=== PATIENT | female | born 1985 | race African-American/Black ===

== ENCOUNTER → 2016-06-07 | Outpatient (CLI) | payer BC ==
--- NOTE | 2016-06-08 13:32 | US ---
EXAM DATE: 06/07/16 PATIENT'S AGE: 30 Patient: ROSA GURROLA Facility: [place], [place] Site . Site : 1985 Study: US OB Pelvis [id number]/10/2017 10:34:38 AM Ordering Physician: Obed Page Final Report: INDICATION: Check placenta, position and estimated weight. TECHNIQUE: Limited transabdominal and transvaginal two-dimensional grayscale ultrasound examination. COMPARISON: 02/17/2016. FINDINGS: There is a living fetus vertex lie with gestational age of 34 weeks 6 days by LMP and 36 weeks 2 days by today`s measurements. EDC based on LMP is 07/13/2016. BPD: 9.1 cm, 36 weeks 6 days Head circumference: 32.3 cm, 36 weeks 4 days Abdominal circumference: 30.3 cm, 34 weeks 2 days Femur length: 7.3 cm, 37 weeks 2 days The weight is estimated at 2707 grams, the 67th percentile. The heart rate is measured at 142 beats per minute and the rhythm appears regular. The amniotic fluid volume is within normal limits with MELI of 12 cm. The placenta is anterior and superior to the cervical os. There is no evidence of previa. The cervical length is normal at 3.0 cm in the internal os is closed. IMPRESSION: 1. Living fetus in vertex lie with gestational age of 34 weeks 6 days by LMP and 36 weeks 2 days by today`s measurements. EDC based on LMP is 07/13/2016. 2. weight estimated at 2707 grams, the 67th percentile. Dictated by Edmund Grey MD @ Jun 07 2016 4:32PM (Electronic Signature) Report Signed by Proxy and Original Signed Document filed in the Medical Record. WISAMD
== END ==
LOC: MW.US 09:29
PROVIDERS: ATTEND Advanced Practice Midwife
DX: Z34.93 Encounter for supervision of normal pregnancy, unspecified, third trimester (principal); Z3A.34 34 weeks gestation of pregnancy
CPT/HCPCS: 76817; 76817-26

== ENCOUNTER → 2016-06-16 | Outpatient (CLI) | payer BC | END | disposition home or self-care (01) | LOC: MW.CHOBGYN 08:48 | PROVIDERS: ATTEND Advanced Practice Midwife | DX: Z34.90 Encounter for supervision of normal pregnancy, unspecified, unspecified trimester (principal) | CPT/HCPCS: 87081 ==

== ENCOUNTER 2016-07-03 20:06 | Outpatient (CLI) | payer BC | END 2016-07-03 21:30 | disposition home or self-care (01) | LOC: MW.OBCHECK 20:06 → MW.OB 20:08 → MW.OBCHECK 21:30 | PROVIDERS: ATTEND Obstetrics & Gynecology | DX: O36.8121 Decreased fetal movements, second trimester, fetus 1 (principal); Z3A.26 26 weeks gestation of pregnancy | CPT/HCPCS: 59025; 81001 ==

== ENCOUNTER 2016-07-05 10:06 | Inpatient (IN) | payer BC ==
[2016-07-05] MEDS ORDERED: Lidocaine 1% 50 ML MDV INJECT PRN (10:25)
[2016-07-05] MEDS ORDERED: Water For Irrigation,Sterile 1,000 ML Container IRR PRN (10:25)
[2016-07-05] MEDS ORDERED: Methylergonovine 0.2 MG/1 ML Amp IM PRN (10:25)
[2016-07-05] MEDS ORDERED: Nalbuphine 10 MG/1 ML Vial IVPUSH PRN (10:25)
[2016-07-05] MEDS ORDERED: Sodium Chloride 0.9% 10 ML Syringe FLUSH PRN (10:25)
[2016-07-05] MEDS ORDERED: Misoprostol 200 MCG Tab PO PRN (10:25)
[2016-07-05] MEDS ORDERED: Sodium Chloride 0.9% 2.5 ML Syringe FLUSH PRN (10:25)
[2016-07-05] MEDS ORDERED: Butorphanol 1 MG/ML SDV IVPUSH PRN (10:25)
[2016-07-05] MEDS ORDERED: Carboprost Tromethamine 250 MCG/1 ML Amp IM PRN (10:25)
[2016-07-05] MEDS ORDERED: Oxytocin/Lactated Ringers 30 UNIT/500 ML BAG IV SCH (10:30)
[2016-07-05] MEDS: Lactated Ringers 1,000 ML IV SCH ×3 (10:30→12:50)
--- NOTE | 2016-07-05 10:35 | PCM.LDHP ---
L&D History of Present Illness - General Date of Service: 07/05/16 Admit Problem/Dx: Patient Status Order with Admit Dx/Problem 07/05/16 10:25 Patient Status [ADT] Routine Admission Diagnosis/Problem Admission Diagnosis/Problem - planned 07/05/16 10:31 30 yo EDC 07/19/2016 38 wks today. A+, RI, GBS neg. Active labor 6-7cm. Intact. Hx in ; anemia. Source of Information: Patient History Limitations: Reports: No limitations - History of Present Illness Improves with: Reports: None Worsens with: Reports: None Associated Symptoms: Reports: N - Related Data Allergies/Adverse Reactions: Allergies Allergy/AdvReac Type Severity Reaction Status Date / Time No Known Allergies Allergy Verified 06/20/14 08:19 H&P Review of Systems - Review of Systems: Review Of Systems: See Below General: Reports: no symptoms HEENT: Reports: no symptoms Pulmonary: Reports: No Symptoms Cardiovascular: Reports: no symptoms Gastrointestinal: Reports: No symptoms Genitourinary: Reports: no symptoms Musculoskeletal: Reports: no symptoms Skin: Reports: no symptoms Psychiatric: Reports: no symptoms Neurological: Reports: No Symptoms Hematologic/Lymphatic: Reports: no symptoms Immunologic: Reports: no symptoms L&D Exam - Exam Exam: See Below - Vital Signs Weight: 70.307 kg - OB Specific Contraction Intensity: Strong movement: active heart tones: present heart tones per min: 120 Heart Rate (FHR) Variability: Moderate (6-25 bmp) Presentation: Vertex - Dobbs Score Dobbs Score Cervix Position: Anterior Dobbs Score Consistency: Soft Dobbs Score Effacement: >80% Dobbs Score Dilation: > 5 cm Dobbs Score Infant's Station: -1 ,0 Dobbs Score Total: 12 - Exam General: alert, oriented, cooperative HEENT: Hearing intact Lungs: Normal respiratory effort Abdomen: soft (gravid) Rectal Exam: Deferred Back Exam: full range of motion Extremities: normal inspection Skin: warm, dry, intact Neurological: cranial nerves intact Psychiatric: alert, normal affect, normal mood - Problem List (1) Supervision of normal IUP (intrauterine ) in multigravida SNOMED Code(s): 009711773, 077750665, 113805016 ICD Code: Z34.80 - ENCOUNTER FOR SUPRVSN OF NORMAL , UNSP TRIMESTER Status: Acute Current Visit: Yes Qualifiers: Trimester: third trimester Qualified Code(s): Z34.83 - Encounter for supervision of other normal , third trimester Problem List Initiated/Reviewed/Updated: Yes Orders Last 24hrs: Active Orders 24 hr Category Date Time Status Patient Status [ADT] Routine ADT 07/05/16 10:25 Active Heart Tones [RC] CONTINUOUS Care 07/05/16 10:25 Active Non Stress Test [RC] PER UNIT ROUTINE Care 07/05/16 10:25 Active May Shower [RC] ASDIRECTED Care 07/05/16 10:25 Active Notify Provider [RC] PRN Care 07/05/16 10:25 Active Up ad Yolanda [RC] ASDIRECTED Care 07/05/16 10:25 Active Vaginal Exam [RC] PRN Care 07/05/16 10:25 Active Vital Signs [RC] PER UNIT ROUTINE Care 07/05/16 10:25 Active CBC W/O DIFF,HEMOGRAM [HEME] Routine Lab 07/05/16 10:25 Ordered TYPE AND SCREEN [BBK] Routine Lab 07/05/16 10:25 Ordered Butorphanol [Stadol] Med 07/05/16 10:25 Active 1 mg IVPUSH Q1H PRN Carboprost Tromethamine [Hemabate DS] Med 07/05/16 10:25 Active 250 mcg IM ASDIRECTED PRN Lactated Ringers [Ringers, Lactated] 1,000 ml Med 07/05/16 10:30 Active IV ASDIRECTED Lidocaine 1% [Xylocaine 1%] Med 07/05/16 10:25 Active 50 ml INJECT .ONCE PRN Methylergonovine [Methergine] Med 07/05/16 10:25 Active 0.2 mg IM ASDIRECTED PRN Misoprostol [Cytotec] Med 07/05/16 10:25 Active 200 mcg PO .ONCE PRN Nalbuphine [Nubain] Med 07/05/16 10:25 Active 10 mg IVPUSH Q1H PRN Oxytocin/Lactated Ringers [Pitocin in LR 30 Units/500 Med 07/05/16 10:30 Active ML] 30 unit in 500 ml IV TITRATE Sodium Chloride 0.9% [Saline Flush] Med 07/05/16 10:25 Active 10 ml FLUSH ASDIRECTED PRN Sodium Chloride 0.9% [Saline Flush] Med 07/05/16 10:25 Active 2.5 ml FLUSH ASDIRECTED PRN Water For Irrigation,Sterile [Sterile Water for Med 07/05/16 10:25 Active Irrigation] 1,000 ml IRR ASDIRECTED PRN Scalp Electrode [WOMSER] Per Unit Routine Oth 07/05/16 10:25 Ordered Peripheral IV Insertion Adult [OM.PC] Routine Oth 07/05/16 10:25 Ordered Resuscitation Status Routine Resus Stat 07/05/16 10:25 Ordered Medication Orders Butorphanol Tartrate (Stadol) 1 mg IVPUSH Q1H PRN PRN Reason: Pain Carboprost Tromethamine (Hemabate Ds) 250 mcg IM ASDIRECTED PRN PRN Reason: Post Hemorrhage Lactated Ringer's (Ringers, Lactated) 1,000 mls @ 150 mls/hr IV ASDIRECTED SAILAJA Oxytocin/Lactated Ringer's (Pitocin In Lr 30 Units/500 Ml) 30 unit in 500 mls @ 999 mls/hr IV TITRATE SAILAJA Stop: 07/05/16 11:01 Lidocaine HCl (Xylocaine 1%) 50 ml INJECT .ONCE PRN PRN Reason: Laceration repair Methylergonovine Maleate (Methergine) 0.2 mg IM ASDIRECTED PRN PRN Reason: Post Hemorrhage Misoprostol (Cytotec) 200 mcg PO .ONCE PRN PRN Reason: Post Hemorrhage Nalbuphine HCl (Nubain) 10 mg IVPUSH Q1H PRN PRN Reason: Pain (severe 7-10) Stop: 07/05/16 12:26 Sodium Chloride (Saline Flush) 10 ml FLUSH ASDIRECTED PRN PRN Reason: Keep Vein Open Sodium Chloride (Saline Flush) 2.5 ml FLUSH ASDIRECTED PRN PRN Reason: Keep Vein Open Sterile Water (Sterile Water For Irrigation) 1,000 ml IRR ASDIRECTED PRN PRN Reason: delivery Assessment/Plan Comment:: Labor A: 30 yo EDC 07/19/2016 38 wks today. A+, RI, GBS neg. Active labor 6- 7cm. Intact. Hx in ; anemia. P: Admit to L&D, epidural prn. Anticipate
--- NOTE | 2016-07-05 11:05 | PCM.PREANE ---
Preanesthetic Assessment - Anesthesia/Transfusion/Family Hx Anesthesia History: Prior Anesthesia Without Reaction - Review of Systems General: No Symptoms Pulmonary: No Symptoms Cardiovascular: No Symptoms Gastrointestinal: No symptoms Neurological: No Symptoms Other: Reports: None - Physical Assessment Height: 5 ft 6 in Weight: 70.307 kg ASA Class: 2 Mental Status: Alert & Oriented x3 Airway Class: Mallampati = 2 Dentition: Reports: Normal Dentition Thyro-Mental Finger Breadths: 3 Mouth Opening Finger Breadths: 3 ROM/Head Extension: Full Lungs: Clear to auscultation, Normal respiratory effort Cardiovascular: Regular Rate, Regular Rhythm - Lab Values: Laboratory Last Values WBC 8.68 K/uL (4.0-11.0) 07/05/16 10:37 RBC 4.49 M/uL (4.30-5.90) 07/05/16 10:37 Hgb 12.1 g/dL (12.0-16.0) 07/05/16 10:37 Hct 36.3 % (36.0-46.0) 07/05/16 10:37 MCV 80.8 fL (80.0-98.0) 07/05/16 10:37 MCH 26.9 pg (27.0-32.0) L 07/05/16 10:37 MCHC 33.3 g/dL (31.0-37.0) 07/05/16 10:37 RDW Std Deviation 62.3 fl (28.0-62.0) H 07/05/16 10:37 RDW Coeff of Luciano 21 % (11.0-15.0) H 07/05/16 10:37 Plt Count 168 K/uL (150-400) 07/05/16 10:37 MPV 10.60 fL (7.40-12.00) 07/05/16 10:37 Nucleated RBC % 0.0 /100WBC 07/05/16 10:37 Nucleated RBCs # 0 K/uL 07/05/16 10:37 - Allergies Allergies/Adverse Reactions: Allergies Allergy/AdvReac Type Severity Reaction Status Date / Time No Known Allergies Allergy Verified 06/20/14 08:19 - Acknowledgements Anesthesia Type Planned: Epidural Pt an Appropriate Candidate for the Planned Anesthesia: Yes Alternatives and Risks of Anesthesia Discussed w Pt/Guardian: Yes Pt/Guardian Understands and Agrees with Anesthesia Plan: Yes PreAnesthesia Questionnaire HEENT History: Reports: None Cardiovascular History: Reports: None Respiratory History: Reports: None Gastrointestinal History: Reports: GERD Genitourinary History: Reports: None 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 Para: 1 LMP (Approximate): Musculoskeletal History: Reports: None Neurological History: Reports: None Psychiatric History: Reports: None Endocrine/Metabolic History: Reports: None Hematologic History: Reports: Anemia Immunologic History: Reports: None Oncologic (Cancer) History: Reports: None Dermatologic History: Reports: None - Infectious Disease History Infectious Disease History: Reports: None - CURRENT (IN HOUSE) MEDS Current Meds: Current Medications Butorphanol Tartrate (Stadol) 1 mg IVPUSH Q1H PRN PRN Reason: Pain Carboprost Tromethamine (Hemabate Ds) 250 mcg IM ASDIRECTED PRN PRN Reason: Post Hemorrhage Lactated Ringer's (Ringers, Lactated) 1,000 mls @ 150 mls/hr IV ASDIRECTED SAILAJA Lidocaine HCl (Xylocaine 1%) 50 ml INJECT .ONCE PRN PRN Reason: Laceration repair Methylergonovine Maleate (Methergine) 0.2 mg IM ASDIRECTED PRN PRN Reason: Post Hemorrhage Misoprostol (Cytotec) 200 mcg PO .ONCE PRN PRN Reason: Post Hemorrhage Nalbuphine HCl (Nubain) 10 mg IVPUSH Q1H PRN PRN Reason: Pain (severe 7-10) Stop: 07/05/16 12:26 Sodium Chloride (Saline Flush) 10 ml FLUSH ASDIRECTED PRN PRN Reason: Keep Vein Open Sodium Chloride (Saline Flush) 2.5 ml FLUSH ASDIRECTED PRN PRN Reason: Keep Vein Open Sterile Water (Sterile Water For Irrigation) 1,000 ml IRR ASDIRECTED PRN PRN Reason: delivery Discontinued Medications Oxytocin/Lactated Ringer's (Pitocin In Lr 30 Units/500 Ml) 30 unit in 500 mls @ 999 mls/hr IV TITRATE SAILAJA Stop: 07/05/16 11:01
[2016-07-05] MEDS ORDERED: Ropivacaine HCl/PF 100 ML ONE (11:07)
[2016-07-05] MEDS ORDERED: fentaNYL 100 MCG/2 ML SDV ONE (11:07)
[2016-07-05] MEDS ORDERED: Acetaminophen 500 MG Tab PO PRN ×2 (15:06)
[2016-07-05] MEDS ORDERED: Ibuprofen 400 MG Tab PO PRN (15:06)
[2016-07-05] MEDS ORDERED: oxyCODONE 5 MG Tab PO PRN (15:06)
[2016-07-05] MEDS ORDERED: Benzocaine/Menthol 20%-0.5% Spray 78 GM Cannister TOP PRN (15:06)
[2016-07-05] MEDS ORDERED: Docusate Sodium 100 MG Cap PO PRN (15:06)
[2016-07-05] MEDS ORDERED: Lanolin 100% Cream 7 GM Tube TOP PRN (15:06)
[2016-07-05] MEDS ORDERED: Bisacodyl 10 MG Supp RECTAL PRN (15:06)
[2016-07-05] MEDS ORDERED: Witch Hazel Medicated Pads 40/Jar TOP PRN (15:06)
[2016-07-05] MEDS: Ibuprofen 800 MG Tab PO PRN (20:32)
--- NOTE | 2016-07-06 07:20 | PCM.DCSUM1 ---
Discharge Summary - Hospital Course Free Text/Narrative:: Discharge home with girl. Follow up 6 weeks or sooner if needed. - Discharge Data Discharge Date: 07/06/16 Discharge Disposition: Home, Self-Care 01 Condition: Good - Discharge Diagnosis/Problem(s) (1) Supervision of normal IUP (intrauterine ) in multigravida SNOMED Code(s): 387919848, 332532308, 139100981 ICD Code: Z34.80 - ENCOUNTER FOR SUPRVSN OF NORMAL , UNSP TRIMESTER Status: Acute Current Visit: Yes Qualifiers: Trimester: third trimester Qualified Code(s): Z34.83 - Encounter for supervision of other normal , third trimester - Patient Instructions Diet: Usual Diet as Tolerated Activity: As Tolerated, Rest and Relax Today Driving: Do Not Drive (for a few days) Showering/Bathing: May Shower Notify Provider of: Fever, Increased Pain, Swelling and Redness, Nausea and/or Vomiting - Discharge Plan Referrals: [facility] [Outside] Kaylee Clay CNM [Mid-] - 08/16/16 9:30 am - Discharge Summary/Plan Comment Discharge Summary/Plan Comment: Discharge home with girl. Follow up 6 weeks or sooner if needed. - General Info Date of Service: 07/06/16 Functional Status: Reports: pain controlled, tolerating diet, ambulating, urinating - Review of Systems General: Reports: No Symptoms HEENT: Reports: no symptoms Pulmonary: Reports: no symptoms Cardiovascular: Reports: No Symptoms Gastrointestinal: Reports: No symptoms Genitourinary: Reports: no symptoms Musculoskeletal: Reports: no symptoms Skin: Reports: no symptoms Neurological: Reports: No Symptoms Psychiatric: Reports: no symptoms - Patient Data Vitals - Most Recent: Last Vital Signs Temp 36.8 C 07/06/16 04:00 Pulse 70 07/06/16 04:00 Resp 12 07/06/16 04:00 BP 115/63 07/06/16 04:00 Pulse Ox 98 07/06/16 04:00 Weight - Most Recent: 83.915 kg I&O - Last 24 hours: Intake & Output 07/05/16 07/06/16 07/06/16 22:59 06:59 14:59 Intake Total 500 Balance 500 Lab Results - Last 24 hrs: Laboratory Results - last 24 hr 07/05/16 07/05/16 Range/Units 10:37 10:37 WBC 8.68 (4.0-11.0) K/uL RBC 4.49 (4.30-5.90) M/uL Hgb 12.1 (12.0-16.0) g/dL Hct 36.3 (36.0-46.0) % MCV 80.8 (80.0-98.0) fL MCH 26.9 L (27.0-32.0) pg MCHC 33.3 (31.0-37.0) g/dL RDW Std Deviation 62.3 H (28.0-62.0) fl RDW Coeff of Luciano 21 H (11.0-15.0) % Plt Count 168 (150-400) K/uL MPV 10.60 (7.40-12.00) fL Nucleated RBC % 0.0 /100WBC Nucleated RBCs # 0 K/uL Blood Type A POSITIVE Antibody Screen NEGATIVE Med Orders - Current: Current Medications Acetaminophen (Tylenol Extra Strength) 500 mg PO Q4H PRN PRN Reason: Pain Acetaminophen (Tylenol Extra Strength) 1,000 mg PO Q4H PRN PRN Reason: Pain Last Admin: 07/06/16 02:35 Dose: 1,000 mg Benzocaine/Menthol (Dermoplast Pain Relief 20%-0.5% [place]) 78 gm TOP ASDIRECTED PRN PRN Reason: Perineal Comfort Measure Last Admin: 07/05/16 20:36 Dose: 1 canister Bisacodyl (Dulcolax) 10 mg RECTAL .ONCE PRN PRN Reason: Constipation Docusate Sodium (Colace) 100 mg PO BID PRN PRN Reason: Constipation Emollient Ointment (Lansinoh Hpa) 0 gm TOP ASDIRECTED PRN PRN Reason: Sore Nipples Last Admin: 07/05/16 20:35 Dose: 1 tube Ibuprofen (Motrin) 400 mg PO Q4H PRN PRN Reason: Pain Ibuprofen (Motrin) 800 mg PO Q6H PRN PRN Reason: Pain Last Admin: 07/05/16 20:32 Dose: 800 mg Oxycodone HCl (Oxycodone) 5 mg PO Q2H PRN PRN Reason: Pain Last Admin: 07/05/16 23:06 Dose: 5 mg Witch Andreina (Tucks) 1 pad TOP ASDIRECTED PRN PRN Reason: comfort care Last Admin: 07/05/16 20:36 Dose: 1 tub Discontinued Medications Butorphanol Tartrate (Stadol) 1 mg IVPUSH Q1H PRN PRN Reason: Pain Carboprost Tromethamine (Hemabate Ds) 250 mcg IM ASDIRECTED PRN PRN Reason: Post Hemorrhage Fentanyl (Sublimaze) Confirm Administered Dose 100 mcg .ROUTE .STK-MED ONE Stop: 07/05/16 11:08 Lactated Ringer's (Ringers, Lactated) 1,000 mls @ 150 mls/hr IV ASDIRECTED [facility] Last Admin: 07/05/16 12:50 Dose: 999 mls/hr Oxytocin/Lactated Ringer's (Pitocin In Lr 30 Units/500 Ml) 30 unit in 500 mls @ 999 mls/hr IV TITRATE [facility] Stop: 07/05/16 11:01 Last Admin: 07/05/16 14:47 Dose: 999 mls/hr Ropivacaine (Naropin 0.2%) Confirm Administered Dose 100 mls @ as directed .ROUTE .STK-MED ONE Stop: 07/05/16 11:08 Lidocaine HCl (Xylocaine 1%) 50 ml INJECT .ONCE PRN PRN Reason: Laceration repair Methylergonovine Maleate (Methergine) 0.2 mg IM ASDIRECTED PRN PRN Reason: Post Hemorrhage Misoprostol (Cytotec) 200 mcg PO .ONCE PRN PRN Reason: Post Hemorrhage Nalbuphine HCl (Nubain) 10 mg IVPUSH Q1H PRN PRN Reason: Pain (severe 7-10) Stop: 07/05/16 12:26 Sodium Chloride (Saline Flush) 10 ml FLUSH ASDIRECTED PRN PRN Reason: Keep Vein Open Sodium Chloride (Saline Flush) 2.5 ml FLUSH ASDIRECTED PRN PRN Reason: Keep Vein Open Sterile Water (Sterile Water For Irrigation) 1,000 ml IRR ASDIRECTED PRN PRN Reason: delivery - Exam General: Reports: alert, oriented, cooperative, no acute distress Lungs: Reports: Normal respiratory effort Abdomen: Reports: soft, no tenderness, no distension (Female) Exam: Vaginal bleeding Rectal (Female) Exam: Deferred Back Exam: Reports: full range of motion Extremities: Reports: no edema, normal pulses Skin: Reports: warm, dry, intact Wound/Incisions: Reports: healing well Neurological: Reports: no new focal deficit Psy/Mental Status: Reports: alert, normal affect, normal mood *Q Meaningful Use (DIS) - VTE *Q VTE Criteria *Q: - Stroke *Q Stroke Criteria *Q: - AMI *Q AMI Criteria *Q:
--- NOTE | 2016-07-06 07:26 | PCM.DEL ---
L & D Note - General Info Date of Service: 07/06/16 - Delivery Note Labor: spontaneous Delivery Outcome: Livebirth Delivery Method: Spontaneous Vaginal Delivery Delivery Mode: Spontaneous Presentation: Vertex Nuchal cord: none Anesthesia Type: Epidural Amniotic Fluid Description: Clear Episiotomy Type: None Laceration: 2nd degree Suture type: vicryl Suture size: 3-0 Placenta: intact, manual removal Cord: 3 vessels Estimated blood loss: 150 Resuscitation needed: No Score 1 min: 9 Score 5 min: 9 Second Stage Interventions: Reports: Pushing Effectively Delivery Comments (Free Text/Narrative):: Late entry note; of viable male over intact perineum, Dr Ybarra doing delivery with myself at side for assist. Head delivered with good pushing, shoulders and body followed easily. Infant to mothers abd with RN at side for eval of . Delayed cord clamping. Pitocin to IVF. Cord clamped x2 and cut by FOB. Cord blood collected. Placenta delivered grossly intact. Inspection noted 2nd degree lac that I repaired with a 3-0 marisela in the usual manor. Edges well approximated homeostasis obtained. EBL 100cc, APGARS 9/9. Wt: 8lb 1oz. Mother and baby left in stable condition bonding skin to skin. Дмитрий MANUEL at for support. - General Info Date of Service: 07/05/16 Admission Dx/Problem (Free Text): Patient Status Order with Admit Dx/Problem 07/05/16 10:25 Patient Status [ADT] Routine Admission Diagnosis/Problem Admission Diagnosis/Problem - planned 07/05/16 10:31 30 yo EDC 07/19/2016 38 wks today. A+, RI, GBS neg. Active labor 6-7cm. Intact. Hx in ; anemia. Functional Status: Reports: pain controlled - Review of Systems General: Reports: No Symptoms HEENT: Reports: no symptoms Pulmonary: Reports: no symptoms Cardiovascular: Reports: No Symptoms Gastrointestinal: Reports: No symptoms Genitourinary: Reports: no symptoms Musculoskeletal: Reports: no symptoms Skin: Reports: no symptoms Neurological: Reports: No Symptoms Psychiatric: Reports: no symptoms - Patient Data Vitals - most recent: Last Vital Signs Temp 36.8 C 07/06/16 04:00 Pulse 70 07/06/16 04:00 Resp 12 07/06/16 04:00 BP 115/63 05/09/17 04:00 Pulse Ox 98 07/06/16 04:00 Weight - most recent: 83.915 kg I&O - last 24 hours: Intake & Output 07/05/16 07/06/16 07/06/16 22:59 06:59 14:59 Intake Total 500 Balance 500 Lab Results last 24 hrs: Laboratory Results - last 24 hr 07/05/16 07/05/16 Range/Units 10:37 10:37 WBC 8.68 (4.0-11.0) K/uL RBC 4.49 (4.30-5.90) M/uL Hgb 12.1 (12.0-16.0) g/dL Hct 36.3 (36.0-46.0) % MCV 80.8 (80.0-98.0) fL MCH 26.9 L (27.0-32.0) pg MCHC 33.3 (31.0-37.0) g/dL RDW Std Deviation 62.3 H (28.0-62.0) fl RDW Coeff of Luciano 21 H (11.0-15.0) % Plt Count 168 (150-400) K/uL MPV 10.60 (7.40-12.00) fL Nucleated RBC % 0.0 /100WBC Nucleated RBCs # 0 K/uL Blood Type A POSITIVE Antibody Screen NEGATIVE Med Orders - Current: Current Medications Acetaminophen (Tylenol Extra Strength) 500 mg PO Q4H PRN PRN Reason: Pain Acetaminophen (Tylenol Extra Strength) 1,000 mg PO Q4H PRN PRN Reason: Pain Last Admin: 07/06/16 02:35 Dose: 1,000 mg Benzocaine/Menthol (Dermoplast Pain Relief 20%-0.5% [place]) 78 gm TOP ASDIRECTED PRN PRN Reason: Perineal Comfort Measure Last Admin: 07/05/16 20:36 Dose: 1 canister Bisacodyl (Dulcolax) 10 mg RECTAL .ONCE PRN PRN Reason: Constipation Docusate Sodium (Colace) 100 mg PO BID PRN PRN Reason: Constipation Emollient Ointment (Lansinoh Hpa) 0 gm TOP ASDIRECTED PRN PRN Reason: Sore Nipples Last Admin: 07/05/16 20:35 Dose: 1 tube Ibuprofen (Motrin) 400 mg PO Q4H PRN PRN Reason: Pain Ibuprofen (Motrin) 800 mg PO Q6H PRN PRN Reason: Pain Last Admin: 07/05/16 20:32 Dose: 800 mg Oxycodone HCl (Oxycodone) 5 mg PO Q2H PRN PRN Reason: Pain Last Admin: 07/05/16 23:06 Dose: 5 mg Witch Andreina (Tucks) 1 pad TOP ASDIRECTED PRN PRN Reason: comfort care Last Admin: 07/05/16 20:36 Dose: 1 tub Discontinued Medications Butorphanol Tartrate (Stadol) 1 mg IVPUSH Q1H PRN PRN Reason: Pain Carboprost Tromethamine (Hemabate Ds) 250 mcg IM ASDIRECTED PRN PRN Reason: Post Hemorrhage Fentanyl (Sublimaze) Confirm Administered Dose 100 mcg .ROUTE .[employer]-MED ONE Stop: 07/05/16 11:08 Lactated Ringer's (Ringers, Lactated) 1,000 mls @ 150 mls/hr IV ASDIRECTED [facility] Last Admin: 07/05/16 12:50 Dose: 999 mls/hr Oxytocin/Lactated Ringer's (Pitocin In Lr 30 Units/500 Ml) 30 unit in 500 mls @ 999 mls/hr IV TITRATE [facility] Stop: 07/05/16 11:01 Last Admin: 07/05/16 14:47 Dose: 999 mls/hr Ropivacaine (Naropin 0.2%) Confirm Administered Dose 100 mls @ as directed .ROUTE .STK-MED ONE Stop: 07/05/16 11:08 Lidocaine HCl (Xylocaine 1%) 50 ml INJECT .ONCE PRN PRN Reason: Laceration repair Methylergonovine Maleate (Methergine) 0.2 mg IM ASDIRECTED PRN PRN Reason: Post Hemorrhage Misoprostol (Cytotec) 200 mcg PO .ONCE PRN PRN Reason: Post Hemorrhage Nalbuphine HCl (Nubain) 10 mg IVPUSH Q1H PRN PRN Reason: Pain (severe 7-10) Stop: 07/05/16 12:26 Sodium Chloride (Saline Flush) 10 ml FLUSH ASDIRECTED PRN PRN Reason: Keep Vein Open Sodium Chloride (Saline Flush) 2.5 ml FLUSH ASDIRECTED PRN PRN Reason: Keep Vein Open Sterile Water (Sterile Water For Irrigation) 1,000 ml IRR ASDIRECTED PRN PRN Reason: delivery - Exam General: alert, oriented, cooperative, no acute distress Lungs: Normal respiratory effort Abdomen: soft, no tenderness, no distension (Female) Exam: Normal bimanual exam, Vaginal bleeding Back Exam: full range of motion Extremities: no edema Skin: warm, dry, intact Wound/Incisions: healing well Neurological: no new focal deficit Psy/Mental Status: alert, normal affect, normal mood - Problem List & Annotations (1) Supervision of normal IUP (intrauterine ) in multigravida SNOMED Code(s): 890943635, 937675302, 371898541 Code(s): Z34.80 - ENCOUNTER FOR SUPRVSN OF NORMAL , UNSP TRIMESTER Status: Acute Current Visit: Yes Qualifiers: Trimester: third trimester Qualified Code(s): Z34.83 - Encounter for supervision of other normal , third trimester (2) (normal spontaneous vaginal delivery) SNOMED Code(s): 13670996 Code(s): O80 - ENCOUNTER FOR FULL-TERM UNCOMPLICATED DELIVERY Status: Acute Priority: Medium Current Visit: Yes - Problem List Review Problem List Initiated/Reviewed/Updated: Yes - My Orders Last 24 Hours: My Active Orders 07/05/16 10:25 Heart Tones [RC] CONTINUOUS Non Stress Test [RC] PER UNIT ROUTINE May Shower [RC] ASDIRECTED Notify Provider [RC] PRN Up ad Yolanda [RC] ASDIRECTED Vaginal Exam [RC] PRN Vital Signs [RC] PER UNIT ROUTINE 07/05/16 15:06 May Shower [RC] ASDIRECTED Up ad Yolanda [RC] ASDIRECTED Vital Signs [RC] PER UNIT ROUTINE Acetaminophen [Tylenol Extra Strength] 1,000 mg PO Q4H PRN Acetaminophen [Tylenol Extra Strength] 500 mg PO Q4H PRN Benzocaine/Menthol [Dermoplast Pain Relief 20%-0.5% [place]] 78 gm TOP ASDIRECTED PRN Bisacodyl [Dulcolax] 10 mg RECTAL .ONCE PRN Docusate Sodium [Colace] 100 mg PO BID PRN Ibuprofen [Motrin] 400 mg PO Q4H PRN Ibuprofen [Motrin] 800 mg PO Q6H PRN Lanolin [Lansinoh HPA] See Dose Instructions TOP ASDIRECTED PRN Witch Andreina [Tucks] 1 pad TOP ASDIRECTED PRN oxyCODONE 5 mg PO Q2H PRN Assess Lochia [WOMSER] Per Unit Routine Assess Uterine Involution [WOMSER] Per Unit Routine Peripheral IV Discontinue [OM.PC] Routine Resuscitation Status Routine 07/05/16 15:08 Patient Status [ADT] Routine 07/05/16 Dinner Regular Diet [DIET] 07/06/16 07:20 Ready for Discharge [RC] PER UNIT ROUTINE - Assessment Assessment:: A: of viable male (Дмитрий). 2nd degree lac with repair. EBL 100cc, APGARS 9 /9. Wt: 8lb 1oz. Stable - Plan Plan:: Labor A: 30 yo EDC 07/19/2016 38 wks today. A+, RI, GBS neg. Active labor 6- 7cm. Intact. Hx in ; anemia. P: Admit to L&D, epidural prn. Anticipate Delivery: P: routine pp plan of care.
[2016-07-06] MEDS: Ibuprofen 800 MG Tab PO PRN ×2 (08:54→18:40)
--- NOTE | 2016-07-06 10:29 | PCM48HPAN ---
Post Anesthesia Note - EVALUATION WITHIN 48HRS OF ANESTHETIC Vital Signs in Normal Range: Yes Patient Participated in Evaluation: Yes Respiratory Function Stable: Yes Airway Patent: Yes Cardiovascular Function Stable: Yes Hydration Status Stable: Yes Pain Control Satisfactory: Yes Nausea and Vomiting Control Satisfactory: Yes Mental Status Recovered: Yes
[2016-07-06 12:16] VITALS: BP 116/70
== END 2016-07-06 19:00 | disposition home or self-care (01) | DRG 560 ==
LOC: MW.OBCHECK 10:06 → MW.OB 10:07 → MW.OBCHECK 10:59 → MW.OB 10:59 → OBSVTOIN 14:47 → MW.OB 14:47
PROVIDERS: ADMIT Obstetrics & Gynecology; ATTEND Obstetrics & Gynecology
PROC: 10E0XZZ Delivery of Products of Conception, External Approach (ICD-10-PCS; principal; 2016-07-05)
PROC: 0KQM0ZZ Repair Perineum Muscle, Open Approach (ICD-10-PCS; 2016-07-05)
DX: O70.1 Second degree perineal laceration during delivery (principal); O99.02 Anemia complicating childbirth; Z3A.38 38 weeks gestation of pregnancy; Z37.0 Single live birth
CPT/HCPCS: 01967; 36415; 59025; 85027; 86850; 86900; 86901; A9270-GY; J7120

== ENCOUNTER 2018-06-01 07:08 | Day surgery (SDC) | payer BC, MEDICAID, OTHER ==
[2018-05-31 12:33] LABS: CHLORIDE,CL 103 mmol/L (98-107); SODIUM,NA 139 mmol/L (136-145)
[~2018-06-01 07:08] MED LIST: Lactated Ringers 1,000 ML IV SCH; Sodium Chloride 0.9% 10 ML SDV IV PRN; Sodium Chloride 0.9% 10 ML Syringe FLUSH PRN; Sodium Chloride 0.9% 2.5 ML Syringe FLUSH PRN
[2018-06-01] MEDS ORDERED: Midazolam 1 MG/ML 2 ML SDV ONE (07:28)
[2018-06-01] MEDS ORDERED: Lidocaine 2% 5 ML SDV ONE (07:28)
[2018-06-01] MEDS ORDERED: fentaNYL 100 MCG/2 ML SDV ONE (07:28)
[2018-06-01] MEDS ORDERED: Propofol 200 MG/20 ML SDV ONE (07:29)
[2018-06-01] MEDS ORDERED: Rocuronium 100 MG/10 ML Syringe ONE (07:30)
[2018-06-01] MEDS ORDERED: Lidocaine 1% 20 ML MDV ONE (08:10)
--- NOTE | 2018-06-01 09:25 | PCM.PREANE ---
Preanesthetic Assessment - Anesthesia/Transfusion/Family Hx Anesthesia History: No Prior Anesthesia Family History of Anesthesia Reaction: No Transfusion History: No Prior Transfusion(s) - Review of Systems General: No Symptoms Pulmonary: No Symptoms Cardiovascular: No Symptoms Gastrointestinal: No Symptoms Neurological: No Symptoms Other: Reports: None - Physical Assessment NPO Status Date: 05/31/18 Height: 5 ft 6 in Weight: 77.564 kg ASA Class: 2 Mental Status: Alert & Oriented x3 Airway Class: Mallampati = 1 Dentition: Reports: Normal Dentition ROM/Head Extension: Full Lungs: Clear to Auscultation, Normal Respiratory Effort Cardiovascular: Regular Rate, Regular Rhythm - Lab Values: Laboratory Last Values WBC 7.11 K/uL (4.0-11.0) 05/31/18 11:40 RBC 4.98 M/uL (4.30-5.90) 05/31/18 11:40 Hgb 14.1 g/dL (12.0-16.0) 05/31/18 11:40 Hct 41.7 % (36.0-46.0) 05/31/18 11:40 MCV 83.7 fL (80.0-98.0) 05/31/18 11:40 MCH 28.3 pg (27.0-32.0) 05/31/18 11:40 MCHC 33.8 g/dL (31.0-37.0) 05/31/18 11:40 RDW Std Deviation 46.3 fl (28.0-62.0) 05/31/18 11:40 RDW Coeff of Luciano 15 % (11.0-15.0) 05/31/18 11:40 Plt Count 260 K/uL (150-400) 05/31/18 11:40 MPV 10.10 fL (7.40-12.00) 05/31/18 11:40 Nucleated RBC % 0.0 /100WBC 05/31/18 11:40 Nucleated RBCs # 0 K/uL 05/31/18 11:40 Sodium 139 mmol/L (136-145) 05/31/18 11:40 Potassium 4.7 mmol/L (3.5-5.1) 05/31/18 11:40 Chloride 103 mmol/L (98-107) 05/31/18 11:40 Carbon Dioxide 25.8 mmol/L (21.0-32.0) 05/31/18 11:40 BUN 13 mg/dL (7.0-18.0) 05/31/18 11:40 Creatinine 0.9 mg/dL (0.6-1.0) 05/31/18 11:40 Est Cr Clr Drug Dosing 85.56 mL/min 05/31/18 11:40 Estimated GFR (MDRD) > 60.0 ml/min 05/31/18 11:40 Glucose 90 mg/dL (74-106) 05/31/18 11:40 Calcium 9.8 mg/dL (8.5-10.1) 05/31/18 11:40 HCG, Qual NEGATIVE (NEG) 05/31/18 11:40 Blood Type A POSITIVE 05/31/18 11:40 Antibody Screen NEGATIVE 05/31/18 11:40 - Allergies Allergies/Adverse Reactions: Allergies Allergy/AdvReac Type Severity Reaction Status Date / Time No Known Allergies Allergy Verified 05/29/18 09:01 - Blood Blood Available: No - Anesthesia Plan Pre-Op Medication Ordered: None - Acknowledgements Anesthesia Type Planned: General Anesthesia Pt an Appropriate Candidate for the Planned Anesthesia: Yes Alternatives and Risks of Anesthesia Discussed w Pt/Guardian: Yes Pt/Guardian Understands and Agrees with Anesthesia Plan: Yes PreAnesthesia Questionnaire - Past Health History Medical/Surgical History: Denies Medical/Surgical History HEENT History: Reports: Other (See Below) Other HEENT History: wears glasses Cardiovascular History: Reports: Other (See Below) Other Cardiovascular History: HTN after child , "good now" Respiratory History: Reports: None Gastrointestinal History: Reports: None Genitourinary History: Reports: None 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: Other OB/BYN History: currently breast feeding, in Jan, 2018 Musculoskeletal History: Reports: None Neurological History: Reports: None Psychiatric History: Reports: None Endocrine/Metabolic History: Reports: None Hematologic History: Reports: None Immunologic History: Reports: None Oncologic (Cancer) History: Reports: None Dermatologic History: Reports: None - Infectious Disease History Infectious Disease History: Reports: None - Past Surgical History Head Surgeries/Procedures: Reports: None HEENT Surgical History: Reports: None Cardiovascular Surgical History: Reports: None Respiratory Surgical History: Reports: None GI Surgical History: Reports: None Female Surgical History: Reports: None Endocrine Surgical History: Reports: None Neurological Surgical History: Reports: None Musculoskeletal Surgical History: Reports: None Dermatological Surgical History: Reports: None - SUBSTANCE USE Smoking Status *Q: Never Smoker Recreational Drug Use History: No - HOME MEDS Home Medications: Home Meds Ibuprofen 800 mg PO TID PRN 05/29/18 [History] - CURRENT (IN HOUSE) MEDS Current Meds: Current Medications Lactated Ringer's (Ringers, Lactated) 1,000 mls @ 500 mls/hr IV BOLUS SAILAJA Sodium Chloride (Saline Flush) 10 ml FLUSH ASDIRECTED PRN PRN Reason: Keep Vein Open Sodium Chloride (Saline Flush) 2.5 ml FLUSH ASDIRECTED PRN PRN Reason: Keep Vein Open Sodium Chloride (Normal Saline) 10 ml IV ASDIRECTED PRN PRN Reason: IV Use Discontinued Medications Fentanyl (Sublimaze) Confirm Administered Dose 100 mcg .ROUTE .STK-MED ONE Stop: 06/01/18 07:29 Lidocaine (Xylocaine-Mpf 2%) Confirm Administered Dose 5 ml .ROUTE .STK-MED ONE Stop: 06/01/18 07:29 Lidocaine HCl (Xylocaine 1%) Confirm Administered Dose 20 ml .ROUTE .STK-MED ONE Stop: 06/01/18 08:11 Midazolam HCl (Versed 1 Mg/Ml) Confirm Administered Dose 2 mg .ROUTE .STK-MED ONE Stop: 06/01/18 07:29 Propofol (Diprivan 20 Ml) Confirm Administered Dose 200 mg .ROUTE .STK-MED ONE Stop: 06/01/18 07:30 Rocuronium [place] (Zemuron) Confirm Administered Dose 100 mg .ROUTE .STK-MED ONE Stop: 06/01/18 07:31
[2018-06-01] MEDS ORDERED: Ondansetron 4 MG/2 ML SDV ONE ×2 (09:48)
[2018-06-01] MEDS ORDERED: Glycopyrrolate 0.2 MG/ML SDV ONE (10:00)
[2018-06-01] MEDS ORDERED: Ondansetron 4 MG/2 ML SDV IVPUSH PRN (10:03)
[2018-06-01] MEDS ORDERED: Ketorolac 30 MG/ML SDV IVPUSH PRN (10:03)
[2018-06-01] MEDS ORDERED: Morphine 4 MG/ML Syringe IVPUSH PRN (10:03)
[2018-06-01] MEDS ORDERED: Promethazine 25 MG/ML SDV IM PRN (10:03)
[2018-06-01] MEDS ORDERED: Acetaminophen/oxyCODONE 325-5 MG Tab PO PRN ×2 (10:03)
[2018-06-01] MEDS ORDERED: Ketorolac 30 MG/ML SDV IVPUSH ONE (10:03)
--- NOTE | 2018-06-01 10:07 | PCM.OPNOTE ---
- General Post-Op/Procedure Note Date of Surgery/Procedure: 06/01/18 Operative Procedure(s): Leep Post-Op Diagnosis: Same Anesthesia Technique: General LMA Primary Surgeon: Juan Jose Lala EBL in mLs: 50 Complications: None Condition: Good
--- NOTE | 2018-06-01 10:08 | PCM.DCSUM1 ---
Discharge Summary - Hospital Course Diagnosis: Stroke: No - Discharge Data Discharge Date: 06/01/18 Discharge Disposition: Home, Self-Care 01 Condition: Good - Patient Summary/Data Operative Procedure(s) Performed: Leep - Patient Instructions Diet: Usual Diet as Tolerated Activity: As Tolerated Driving: Do Not Drive Showering/Bathing: May Shower Notify Provider of: Fever, Nausea and/or Vomiting - Discharge Plan Home Medications: Home Meds Ibuprofen 800 mg PO TID PRN 05/29/18 [History] - Discharge Summary/Plan Comment DC Time >30 min.: Yes - General Info Date of Service: 06/01/18 Functional Status: Reports: Pain Controlled - Review of Systems General: Reports: No Symptoms HEENT: Reports: No Symptoms Pulmonary: Reports: No Symptoms Cardiovascular: Reports: No Symptoms Gastrointestinal: Reports: No Symptoms Genitourinary: Reports: No Symptoms Musculoskeletal: Reports: No Symptoms Skin: Reports: No Symptoms Neurological: Reports: No Symptoms Psychiatric: Reports: No Symptoms - Patient Data Vitals - Most Recent: Last Vital Signs Temp 36.1 C 06/01/18 09:20 Pulse 79 06/01/18 09:20 Resp 16 06/01/18 09:20 BP 110/74 06/01/18 09:20 Pulse Ox 98 06/01/18 09:20 Weight - Most Recent: 77.564 kg Lab Results - Last 24 hrs: Laboratory Results - last 24 hr 05/31/18 05/31/18 05/31/18 Range/Units 11:40 11:40 11:40 WBC 7.11 (4.0-11.0) K/uL RBC 4.98 (4.30-5.90) M/uL Hgb 14.1 (12.0-16.0) g/dL Hct 41.7 (36.0-46.0) % MCV 83.7 (80.0-98.0) fL MCH 28.3 (27.0-32.0) pg MCHC 33.8 (31.0-37.0) g/dL RDW Std Deviation 46.3 (28.0-62.0) fl RDW Coeff of Luciano 15 (11.0-15.0) % Plt Count 260 (150-400) K/uL MPV 10.10 (7.40-12.00) fL Nucleated RBC % 0.0 /100WBC Nucleated RBCs # 0 K/uL Sodium 139 (136-145) mmol/L Potassium 4.7 (3.5-5.1) mmol/L Chloride 103 (98-107) mmol/L Carbon Dioxide 25.8 (21.0-32.0) mmol/L BUN 13 (7.0-18.0) mg/dL Creatinine 0.9 (0.6-1.0) mg/dL Est Cr Clr Drug Dosing 85.56 mL/min Estimated GFR (MDRD) > 60.0 ml/min Glucose 90 (74-106) mg/dL Calcium 9.8 (8.5-10.1) mg/dL HCG, Qual NEGATIVE (NEG) Blood Type Antibody Screen 05/31/18 Range/Units 11:40 WBC (4.0-11.0) K/uL RBC (4.30-5.90) M/uL Hgb (12.0-16.0) g/dL Hct (36.0-46.0) % MCV (80.0-98.0) fL MCH (27.0-32.0) pg MCHC (31.0-37.0) g/dL RDW Std Deviation (28.0-62.0) fl RDW Coeff of Luciano (11.0-15.0) % Plt Count (150-400) K/uL MPV (7.40-12.00) fL Nucleated RBC % /100WBC Nucleated RBCs # K/uL Sodium (136-145) mmol/L Potassium (3.5-5.1) mmol/L Chloride (98-107) mmol/L Carbon Dioxide (21.0-32.0) mmol/L BUN (7.0-18.0) mg/dL Creatinine (0.6-1.0) mg/dL Est Cr Clr Drug Dosing mL/min Estimated GFR (MDRD) ml/min Glucose (74-106) mg/dL Calcium (8.5-10.1) mg/dL HCG, Qual (NEG) Blood Type A POSITIVE Antibody Screen NEGATIVE Med Orders - Current: Current Medications Lactated Ringer's (Ringers, Lactated) 1,000 mls @ 500 mls/hr IV BOLUS SAILAJA Ketorolac Tromethamine (Toradol) 30 mg IVPUSH ONETIME ONE Stop: 06/01/18 10:04 Ketorolac Tromethamine (Toradol) 30 mg IVPUSH Q6H PRN PRN Reason: Pain (severe 7-10) Stop: 06/06/18 10:04 Morphine Sulfate (Morphine) 4 mg IVPUSH Q2H PRN PRN Reason: Pain (severe 7-10) Ondansetron HCl (Zofran) 4 mg IVPUSH Q6H PRN PRN Reason: Nausea/Vomiting Oxycodone/Acetaminophen (Percocet 325-5 Mg) 1 tab PO Q4H PRN PRN Reason: Pain (moderate 4-6) Oxycodone/Acetaminophen (Percocet 325-5 Mg) 2 tab PO Q4H PRN PRN Reason: Pain (moderate 4-6) Promethazine HCl (Phenergan) 25 mg IM Q6H PRN PRN Reason: Nausea/Vomiting Sodium Chloride (Saline Flush) 10 ml FLUSH ASDIRECTED PRN PRN Reason: Keep Vein Open Sodium Chloride (Saline Flush) 2.5 ml FLUSH ASDIRECTED PRN PRN Reason: Keep Vein Open Sodium Chloride (Normal Saline) 10 ml IV ASDIRECTED PRN PRN Reason: IV Use Discontinued Medications Fentanyl (Sublimaze) Confirm Administered Dose 100 mcg .ROUTE .STK-MED ONE Stop: 06/01/18 07:29 Glycopyrrolate (Robinul) Confirm Administered Dose 0.4 mg .ROUTE .STK-MED ONE Stop: 06/01/18 10:01 Lidocaine (Xylocaine-Mpf 2%) Confirm Administered Dose 5 ml .ROUTE .STK-MED ONE Stop: 06/01/18 07:29 Lidocaine HCl (Xylocaine 1%) Confirm Administered Dose 20 ml .ROUTE .STK-MED ONE Stop: 06/01/18 08:11 Midazolam HCl (Versed 1 Mg/Ml) Confirm Administered Dose 2 mg .ROUTE .STK-MED ONE Stop: 06/01/18 07:29 Ondansetron HCl (Zofran) Confirm Administered Dose 4 mg .ROUTE .STK-MED ONE Stop: 06/01/18 09:49 Ondansetron HCl (Zofran) Confirm Administered Dose 4 mg .ROUTE .STK-MED ONE Stop: 06/01/18 09:49 Propofol (Diprivan 20 Ml) Confirm Administered Dose 200 mg .ROUTE .STK-MED ONE Stop: 06/01/18 07:30 Rocuronium [place] (Zemuron) Confirm Administered Dose 100 mg .ROUTE .STK-MED ONE Stop: 06/01/18 07:31 - Exam General: Reports: Alert, Oriented HEENT: Reports: Pupils Equal, Pupils Reactive, EOMI, Mucous Membr. Moist/[place] Neck: Reports: Supple Lungs: Reports: Clear to Auscultation, Normal Respiratory Effort Cardiovascular: Reports: Regular Rate, Regular Rhythm GI/Abdominal Exam: Normal Bowel Sounds, Soft, Non-Tender, No Organomegaly, No Distention, No Abnormal Bruit, No Mass, Pelvis Stable (Female) Exam: Normal External Exam, Normal Speculum Exam, Normal Bimanual Exam Rectal (Female) Exam: Normal Exam, Normal Rectal Tone Back Exam: Reports: Normal Inspection, Full Range of Motion Extremities: Normal Inspection, Normal Range of Motion, Non-Tender, No Pedal Edema, Normal Capillary Refill Skin: Reports: Warm, Dry, Intact Wound/Incisions: Reports: Healing Well Neurological: Reports: No New Focal Deficit Psy/Mental Status: Reports: Alert, Normal Affect, Normal Mood
[2018-06-01] MEDS ORDERED: Ketorolac 30 MG/ML SDV ONE (10:16)
--- NOTE | 2018-06-01 10:35 | PCM.POSTAN ---
POST ANESTHESIA ASSESSMENT - MENTAL STATUS Mental Status: Alert, Oriented - RESPIRATORY Respiratory Status: Respiratory Rate WNL, Airway Patent, O2 Saturation Stable - CARDIOVASCULAR CV Status: Pulse Rate WNL, Blood Pressure Stable - GASTROINTESTINAL GI Status: No Symptoms - POST OP HYDRATION Hydration Status: Adequate & Stable
[2018-06-01 11:12] VITALS: BP 118/85
--- NOTE | 2018-06-01 11:48 | PCM48HPAN ---
Post Anesthesia Note - EVALUATION WITHIN 48HRS OF ANESTHETIC Vital Signs in Normal Range: Yes Patient Participated in Evaluation: Yes Respiratory Function Stable: Yes Airway Patent: Yes Cardiovascular Function Stable: Yes Hydration Status Stable: Yes Pain Control Satisfactory: Yes Nausea and Vomiting Control Satisfactory: Yes Mental Status Recovered: Yes Resp Rate: 15
--- NOTE | 2018-06-01 17:03 | OR ---
SURGEON: Juan Jose Lala MD DATE OF PROCEDURE: 06/01/2018 PREOPERATIVE DIAGNOSIS: Abnormal Pap smear with a high-grade abnormal virus. POSTOPERATIVE DIAGNOSIS: Abnormal Pap smear with a high-grade abnormal virus. PROCEDURE PERFORMED: LEEP conization of the cervix. LOCK SETTER: OR tech. ANESTHESIA: LMA general. ESTIMATED BLOOD LOSS: 50 mL. COMPLICATIONS: None. FINDING: Normal uterus, tubes, and ovaries. INDICATION FOR SURGERY: This patient is a 32-year-old, she has had a persistent abnormal Pap smear with a high-grade virus 16 and 18. The patient is admitted with intention of doing diagnostic and therapeutic cone. PROCEDURE DETAIL: The patient was brought to the OR, properly identified. After adequate level of anesthesia, patient was placed in lithotomy position, prepped and draped in sterile fashion as usual. A short weighted speculum placed in vagina, and then, the cervix was grabbed on 2 sides at 3 and 9 o'clock with Allis clamp, and then, using the loop excision, shallow cone is performed without any problem and sent for histopathology, and then, the base of the cone was cauterized with a ball electrocautery until the bleeding stopped. Once procedure is finished and instrument and hardware retrieved from the vagina, and instrument and hardware count was correct. The patient tolerated the procedure well, went to recovery room in stable and general condition. MICAH / LEONID /[id number]
== END 2018-06-01 11:55 | disposition home or self-care (01) ==
LOC: MW.SDS 07:08
PROVIDERS: ATTEND Obstetrics & Gynecology
DX: N87.1 Moderate cervical dysplasia (principal); N72 Inflammatory disease of cervix uteri; Z79.899 Other long term (current) drug therapy
CPT/HCPCS: 36415; 57522; 80048; 84703; 85027; 86850; 86900; 86901; J1885; J2001; J2250; J2405; J2704; J3010; J3490; J7120

== ENCOUNTER 2019-08-17 21:18 | Inpatient (IN) | payer BC ==
[2019-08-17] MEDS ORDERED: Misoprostol 200 MCG Tab PO PRN (21:45)
[2019-08-17] MEDS ORDERED: Carboprost Tromethamine 250 MCG/1 ML Amp IM PRN (21:45)
[2019-08-17] MEDS ORDERED: Water For Irrigation,Sterile 1,000 ML Container IRR PRN (21:45)
[2019-08-17] MEDS ORDERED: Oxytocin/0.9 % Sodium Chloride 30 UNIT/500 ML BAG IV SCH ×3 (21:45→23:30)
[2019-08-17] MEDS ORDERED: Ampicillin 1 GM in Sodium Chloride 0.9% 50 ML IV SCH (21:45)
[2019-08-17] MEDS ORDERED: Methylergonovine 0.2 MG/1 ML Amp IM PRN (21:45)
[2019-08-17] MEDS ORDERED: Lidocaine 1% 50 ML MDV INJECT PRN (21:45)
[2019-08-17] MEDS ORDERED: Butorphanol 1 MG/ML SDV IVPUSH PRN (21:45)
[2019-08-17] MEDS ORDERED: Sodium Chloride 0.9% 10 ML SDV IV PRN ×2 (21:45→23:24)
[2019-08-17] MEDS ORDERED: Lactated Ringers 1,000 ML IV SCH ×2 (21:45→23:30)
[2019-08-17] MEDS ORDERED: Ondansetron 4 MG/2 ML SDV IVPUSH PRN (21:45)
[2019-08-17] MEDS ORDERED: Terbutaline 1 MG/ML SDV SUBCUT PRN (21:45)
[2019-08-17] MEDS ORDERED: Tranexamic Acid 1,000 MG in Sodium Chloride 0.9% 100 ML IV PRN (21:45)
[2019-08-17] MEDS ORDERED: Nalbuphine 10 MG/1 ML Vial IVPUSH PRN (21:45)
--- NOTE | 2019-08-17 22:43 | PCM.LDHP ---
L&D History of Present Illness - General Date of Service: 08/17/19 Admit Problem/Dx: Patient Status Order with Admit Dx/Problem 08/17/19 21:32 Patient Status [ADT] Routine Admission Diagnosis/Problem Admission Diagnosis/Problem Source of Information: Patient History Limitations: Reports: No Limitations - Related Data Allergies/Adverse Reactions: Allergies Allergy/AdvReac Type Severity Reaction Status Date / Time No Known Allergies Allergy Verified 05/29/18 09:01 Home Medications: Home Meds Ibuprofen 800 mg PO TID PRN 05/29/18 [History] Past Medical History - Past Health History Medical/Surgical History: Denies Medical/Surgical History HEENT History: Reports: Other (See Below) Other HEENT History: wears glasses Cardiovascular History: Reports: Other (See Below) Other Cardiovascular History: HTN after child , "good now" Respiratory History: Reports: None Gastrointestinal History: Reports: None Genitourinary History: Reports: None 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 OB/BYN History: currently breast feeding, in Jan, 2018 Musculoskeletal History: Reports: None Neurological History: Reports: None Psychiatric History: Reports: None Endocrine/Metabolic History: Reports: None Hematologic History: Reports: None Immunologic History: Reports: None Oncologic (Cancer) History: Reports: None Dermatologic History: Reports: None - Infectious Disease History Infectious Disease History: Reports: None - Past Surgical History Head Surgeries/Procedures: Reports: None HEENT Surgical History: Reports: None Cardiovascular Surgical History: Reports: None Respiratory Surgical History: Reports: None GI Surgical History: Reports: None Female Surgical History: Reports: None Endocrine Surgical History: Reports: None Neurological Surgical History: Reports: None Musculoskeletal Surgical History: Reports: None Dermatological Surgical History: Reports: None Social & Family History - Family History Family Medical History: Noncontributory - Caffeine Use Caffeine Use: Reports: None H&P Review of Systems - Review of Systems: Review Of Systems: See Below General: Reports: No Symptoms HEENT: Reports: No Symptoms Pulmonary: Reports: No Symptoms Cardiovascular: Reports: No Symptoms Gastrointestinal: Reports: No Symptoms Genitourinary: Reports: No Symptoms Musculoskeletal: Reports: No Symptoms Skin: Reports: No Symptoms Psychiatric: Reports: No Symptoms Neurological: Reports: No Symptoms Hematologic/Lymphatic: Reports: No Symptoms Immunologic: Reports: No Symptoms L&D Exam - Exam Exam: See Below - Vital Signs Weight: 209 lb - OB Specific Contraction Intensity: Mild to Moderate Movement: Active Heart Tones: Present Heart Rate (FHR) Variability: Moderate (6-25 bmp) Presentation: Breech - Dobbs Score Dobbs Score Cervix Position: Midposition Dobbs Score Consistency: Soft Dobbs Score Effacement: >80% Dobbs Score Dilation: 3-4 cm Dobbs Score Infant's Station: -1 ,0 Dobbs Score Total: 10 - Exam General: Alert, Oriented, Cooperative Lungs: Clear to Auscultation, Normal Respiratory Effort Cardiovascular: Regular Rate, Regular Rhythm GI/Abdominal Exam: Soft, Non-Tender Rectal Exam: Deferred Genitourinary: Normal external exam, Vaginal discharge (clear fluid) Back Exam: Normal Inspection, Full Range of Motion Extremities: Normal Inspection, Normal Range of Motion, Non-Tender, Normal Capillary Refill Skin: Warm, Dry, Intact Psychiatric: Alert, Normal Affect, Normal Mood - Problem List (1) Supervision of normal IUP (intrauterine ) in multigravida SNOMED Code(s): 873608568, [id number], [id number] ICD Code: Z34.80 - ENCOUNTER FOR SUPRVSN OF NORMAL , UNSP TRIMESTER Status: Acute Priority: High Current Visit: No Qualifiers: Trimester: third trimester Qualified Code(s): Z34.83 - Encounter for supervision of other normal , third trimester Problem List Initiated/Reviewed/Updated: Yes Orders Last 24hrs: Active Orders 24 hr Category Date Time Status Patient Status [ADT] Routine ADT 08/17/19 21:32 Active Bedrest Bathroom Privileges [RC] ASDIRECTED Care 08/17/19 21:45 Active Communication Order [RC] ASDIRECTED Care 08/17/19 21:45 Active Communication Order [RC] ASDIRECTED Care 08/17/19 21:45 Active Communication Order [RC] ASDIRECTED Care 08/17/19 21:45 Active Non Stress Test [RC] PER UNIT ROUTINE Care 08/17/19 21:32 Active Notify Provider [RC] PRN Care 08/17/19 21:45 Active Notify Provider [RC] PRN Care 08/17/19 21:45 Active Notify Provider [RC] STAT Care 08/17/19 21:45 Active Oxygen Therapy [RC] ASDIRECTED Care 08/17/19 21:45 Active Up ad Yolanda [RC] ASDIRECTED Care 08/17/19 21:32 Active Vaginal Exam [RC] Click to Edit Care 08/17/19 21:32 Active Vaginal Exam [RC] PRN Care 08/17/19 21:45 Active Vital Signs [RC] PER UNIT ROUTINE Care 08/17/19 21:32 Active Abdomen Ltd [US] Routine Exams 08/17/19 22:22 Ordered Butorphanol [Stadol] Med 08/17/19 21:45 Active 1 mg IVPUSH Q1H PRN Carboprost Tromethamine [Hemabate DS] Med 08/17/19 21:45 Active 250 mcg IM ASDIRECTED PRN Lactated Ringers [Ringers, Lactated] 1,000 ml Med 08/17/19 21:45 Active IV ASDIRECTED Lidocaine 1% [Xylocaine 1%] Med 08/17/19 21:45 Active 50 ml INJECT ONETIME PRN Methylergonovine [Methergine] Med 08/17/19 21:45 Active 0.2 mg IM ASDIRECTED PRN Nalbuphine [Nubain] Med 08/17/19 21:45 Active 10 mg IVPUSH Q1H PRN Ondansetron [Zofran] Med 08/17/19 21:45 Active 4 mg IVPUSH Q4H PRN Oxytocin/0.9 % Sodium Chloride [Oxytocin 30 Unit/500 ML Med 08/17/19 21:45 Active -NS] 30 unit in 500 ml IV TITRATE Oxytocin/0.9 % Sodium Chloride [Oxytocin 30 Unit/500 ML Med 08/17/19 21:45 Active -NS] 30 unit in 500 ml IV TITRATE Sodium Chloride 0.9% [Normal Saline] Med 08/17/19 21:45 Active 10 ml IV ASDIRECTED PRN Terbutaline [Brethine] Med 08/17/19 21:45 Active 0.25 mg SUBCUT ASDIRECTED PRN Tranexamic Acid [Cyklokapron] 1,000 mg Med 08/17/19 21:45 Active Sodium Chloride 0.9% [Normal Saline] 100 ml IV ONETIME Water For Irrigation,Sterile [Sterile Water for Med 08/17/19 21:45 Active Irrigation] 1,000 ml IRR ASDIRECTED PRN miSOPROStoL [Cytotec] Med 08/17/19 21:45 Active 200 mcg PO ONETIME PRN Medication Administration Instruction [OM.PC] Q3H Oth 08/17/19 21:45 Ordered Peripheral IV Insertion Adult [OM.PC] Routine Oth 08/17/19 21:45 Ordered Resuscitation Status Routine Resus Stat 08/17/19 21:32 Ordered Medication Orders Butorphanol Tartrate (Stadol) 1 mg IVPUSH Q1H PRN PRN Reason: Pain Carboprost Tromethamine (Hemabate Ds) 250 mcg IM ASDIRECTED PRN PRN Reason: Post Hemorrhage Lactated Ringer's (Ringers, Lactated) 1,000 mls @ 150 mls/hr IV ASDIRECTED SAILAJA Last Admin: 08/17/19 22:11 Dose: 150 mls/hr Documented by: SALLYAC Oxytocin/Sodium Chloride (Oxytocin 30 Unit/500 Ml-Ns) 30 unit in 500 mls @ 999 mls/hr IV TITRATE SAILAJA Tranexamic Acid 1,000 mg/ (Sodium Chloride) 110 mls @ 660 mls/hr IV ONETIME PRN PRN Reason: Bleeding Oxytocin/Sodium Chloride (Oxytocin 30 Unit/500 Ml-Ns) 30 unit in 500 mls @ 2 mls/hr IV TITRATE SAILAJA; Protocol Lidocaine HCl (Xylocaine 1%) 50 ml INJECT ONETIME PRN PRN Reason: Laceration repair Methylergonovine Maleate (Methergine) 0.2 mg IM ASDIRECTED PRN PRN Reason: Post Hemorrhage Misoprostol (Cytotec) 200 mcg PO ONETIME PRN PRN Reason: Post Hemorrhage Nalbuphine HCl (Nubain) 10 mg IVPUSH Q1H PRN PRN Reason: Pain (severe 7-10) Ondansetron HCl (Zofran) 4 mg IVPUSH Q4H PRN PRN Reason: Nausea/Vomiting Sodium Chloride (Normal Saline) 10 ml IV ASDIRECTED PRN PRN Reason: IV Use Sterile Water (Sterile Water For Irrigation) 1,000 ml IRR ASDIRECTED PRN PRN Reason: delivery Terbutaline Sulfate (Brethine) 0.25 mg SUBCUT ASDIRECTED PRN PRN Reason: Tacysystole Assessment/Plan Comment:: Admit A: at 38 5/7 weeks (RUSTY: 08/26/19); presenting to L&D via ambulance with grossly ruptured membranes; 3 cm/80%/-1, soft, midposition per nurse report; A+, GBS negative, Rubella immune; sonia q3-5 minutes; SVE by provider noted suspected breech position; bedside ultrasound confirmed breech presentation. P: Admit for section due to breech presentation with ruptured m embranes; Dr. Lala and surgical team called in.
[2019-08-17] MEDS ORDERED: Sodium Chloride 0.9% 10 ML Syringe FLUSH PRN (23:24)
[2019-08-17] MEDS ORDERED: ceFAZolin 2 GM in Premix Bag 1 BAG IV ONE (23:24)
[2019-08-17] MEDS ORDERED: Citric Acid/Sodium Citrate Solution 30 ML Cup PO ONE (23:24)
[2019-08-17] MEDS ORDERED: Sodium Chloride 0.9% 2.5 ML Syringe FLUSH PRN (23:24)
[2019-08-17] MEDS ORDERED: Morphine PF 10 MG/10 ML SDV ONE (23:26)
[2019-08-17] MEDS ORDERED: Ondansetron 4 MG/2 ML SDV ONE (23:28)
[2019-08-17] MEDS ORDERED: Ketorolac 30 MG/ML SDV ONE (23:28)
[2019-08-17] MEDS ORDERED: Oxytocin 10 Units/1 ML SDV ONE (23:28)
[2019-08-17] MEDS ORDERED: Phenylephrine 1% 10 MG/ML SDV ONE (23:28)
[2019-08-17] MEDS ORDERED: Octyl 2-Cyanoacrylate 1 Tube TOP ONE (23:33)
[2019-08-17] MEDS ORDERED: Propofol 200 MG/20 ML SDV ONE (23:51)
[2019-08-17] MEDS ORDERED: fentaNYL 250 MCG/5 ML SDV ONE (23:57)
[2019-08-18] MEDS ORDERED: Acetaminophen/oxyCODONE 325-5 MG Tab PO PRN ×2 (00:18→00:19)
[2019-08-18] MEDS ORDERED: Naloxone 0.4 MG/ML Syringe IVPUSH PRN (00:18)
[2019-08-18] MEDS ORDERED: Nalbuphine 10 MG/1 ML Vial IVPUSH PRN (00:18)
[2019-08-18] MEDS ORDERED: fentaNYL 100 MCG/2 ML SDV IVPUSH PRN (00:18)
[2019-08-18] MEDS ORDERED: diphenhydrAMINE 50 MG/ML SDV IVPUSH PRN ×2 (00:18→00:19)
[2019-08-18] MEDS ORDERED: Ondansetron 4 MG/2 ML SDV IVPUSH PRN ×2 (00:18→00:19)
[2019-08-18] MEDS ORDERED: Oxytocin 10 Units/1 ML SDV IM PRN (00:19)
[2019-08-18] MEDS ORDERED: Tranexamic Acid 1,000 MG in Sodium Chloride 0.9% 100 ML IV PRN (00:19)
[2019-08-18] MEDS ORDERED: Lanolin 100% Cream 7 GM Tube TOP PRN (00:19)
[2019-08-18] MEDS ORDERED: Methylergonovine 0.2 MG/1 ML Amp IM PRN (00:19)
[2019-08-18] MEDS ORDERED: Misoprostol 200 MCG Tab RECTAL PRN (00:19)
[2019-08-18] MEDS ORDERED: Bisacodyl 10 MG Supp RECTAL PRN (00:19)
--- NOTE | 2019-08-18 00:21 | PCM.PREANE ---
Preanesthetic Assessment - Anesthesia/Transfusion/Family Hx Anesthesia History: No Prior Anesthesia Family History of Anesthesia Reaction: No Transfusion History: No Prior Transfusion(s) Intubation History: Unknown - Review of Systems General: No Symptoms Pulmonary: No Symptoms Cardiovascular: No Symptoms Gastrointestinal: No Symptoms Neurological: No Symptoms Other: Reports: None - Physical Assessment Height: 5 ft 6 in Weight: 94.801 kg ASA Class: 2E Mental Status: Alert & Oriented x3 Airway Class: Mallampati = 2 Dentition: Reports: Normal Dentition Thyro-Mental Finger Breadths: 3 Mouth Opening Finger Breadths: 3 ROM/Head Extension: Full Lungs: Clear to Auscultation, Normal Respiratory Effort Cardiovascular: Regular Rate, Regular Rhythm - Lab Values: Laboratory Last Values WBC 8.33 K/uL (4.0-11.0) 08/17/19 22:06 RBC 4.44 M/uL (4.30-5.90) 08/17/19 22:06 Hgb 13.0 g/dL (12.0-16.0) 08/17/19 22:06 Hct 38.6 % (36.0-46.0) 08/17/19 22:06 MCV 86.9 fL (80.0-98.0) 08/17/19 22:06 MCH 29.3 pg (27.0-32.0) 08/17/19 22:06 MCHC 33.7 g/dL (31.0-37.0) 08/17/19 22:06 RDW Std Deviation 49.7 fl (28.0-62.0) 08/17/19 22:06 RDW Coeff of Luciano 16 % (11.0-15.0) H 08/17/19 22:06 Plt Count 240 K/uL (150-400) 08/17/19 22:06 MPV 11.30 fL (7.40-12.00) 08/17/19 22:06 Nucleated RBC % 0.0 /100WBC 08/17/19 22:06 Nucleated RBCs # 0 K/uL 08/17/19 22:06 SARS-CoV-2 RNA (RT-PCR) NEGATIVE (NEGATIVE) 08/17/19 22:42 Blood Type A POSITIVE 08/17/19 22:06 Antibody Screen NEGATIVE 08/17/19 22:06 - Allergies Allergies/Adverse Reactions: Allergies Allergy/AdvReac Type Severity Reaction Status Date / Time No Known Allergies Allergy Verified 05/29/18 09:01 - Blood Blood Available: No - Anesthesia Plan Pre-Op Medication Ordered: None - Acknowledgements Anesthesia Type Planned: Spinal (GETA back-up plan (rapid sequence)) Pt an Appropriate Candidate for the Planned Anesthesia: Yes Alternatives and Risks of Anesthesia Discussed w Pt/Guardian: Yes Pt/Guardian Understands and Agrees with Anesthesia Plan: Yes PreAnesthesia Questionnaire - Past Health History Medical/Surgical History: Denies Medical/Surgical History HEENT History: Reports: Other (See Below) Other HEENT History: wears glasses Cardiovascular History: Reports: Other (See Below) Other Cardiovascular History: HTN after child , "good now" Respiratory History: Reports: None Gastrointestinal History: Reports: None Genitourinary History: Reports: None 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: Other OB/BYN History: currently breast feeding, in Jan, 2018, full term , breech in labor Musculoskeletal History: Reports: None Neurological History: Reports: None Psychiatric History: Reports: None Endocrine/Metabolic History: Reports: None Hematologic History: Reports: None Immunologic History: Reports: None Oncologic (Cancer) History: Reports: None Dermatologic History: Reports: None - Infectious Disease History Infectious Disease History: Reports: None - Past Surgical History Head Surgeries/Procedures: Reports: None HEENT Surgical History: Reports: None Cardiovascular Surgical History: Reports: None Respiratory Surgical History: Reports: None GI Surgical History: Reports: None Female Surgical History: Reports: None Endocrine Surgical History: Reports: None Neurological Surgical History: Reports: None Musculoskeletal Surgical History: Reports: None Dermatological Surgical History: Reports: None - HOME MEDS Home Medications: Home Meds Ibuprofen 800 mg PO TID PRN 05/29/18 [History] - CURRENT (IN HOUSE) MEDS Current Meds: Current Medications Butorphanol Tartrate (Stadol) 1 mg IVPUSH Q1H PRN PRN Reason: Pain Carboprost Tromethamine (Hemabate Ds) 250 mcg IM ASDIRECTED PRN PRN Reason: Post Hemorrhage Lactated Ringer's (Ringers, Lactated) 1,000 mls @ 150 mls/hr IV ASDIRECTED SAILAJA Last Admin: 08/17/19 22:11 Dose: 150 mls/hr Documented by: Oxytocin/Sodium Chloride (Oxytocin 30 Unit/500 Ml-Ns) 30 unit in 500 mls @ 999 mls/hr IV TITRATE SAILAJA Tranexamic Acid 1,000 mg/ (Sodium Chloride) 110 mls @ 660 mls/hr IV ONETIME PRN PRN Reason: Bleeding Oxytocin/Sodium Chloride (Oxytocin 30 Unit/500 Ml-Ns) 30 unit in 500 mls @ 2 mls/hr IV TITRATE SAILAJA; Protocol Lactated Ringer's (Ringers, Lactated) 1,000 mls @ 500 mls/hr IV BOLUS SAILAJA Oxytocin/Sodium Chloride (Oxytocin 30 Unit/500 Ml-Ns) 30 unit in 500 mls @ 250 mls/hr IV TITRATE SAILAJA Lidocaine HCl (Xylocaine 1%) 50 ml INJECT ONETIME PRN PRN Reason: Laceration repair Methylergonovine Maleate (Methergine) 0.2 mg IM ASDIRECTED PRN PRN Reason: Post Hemorrhage Misoprostol (Cytotec) 200 mcg PO ONETIME PRN PRN Reason: Post Hemorrhage Nalbuphine HCl (Nubain) 10 mg IVPUSH Q1H PRN PRN Reason: Pain (severe 7-10) Ondansetron HCl (Zofran) 4 mg IVPUSH Q4H PRN PRN Reason: Nausea/Vomiting Sodium Chloride (Normal Saline) 10 ml IV ASDIRECTED PRN PRN Reason: IV Use Sodium Chloride (Saline Flush) 10 ml FLUSH ASDIRECTED PRN PRN Reason: Keep Vein Open Sodium Chloride (Saline Flush) 2.5 ml FLUSH ASDIRECTED PRN PRN Reason: Keep Vein Open Sodium Chloride (Normal Saline) 10 ml IV ASDIRECTED PRN PRN Reason: IV Use Sterile Water (Sterile Water For Irrigation) 1,000 ml IRR ASDIRECTED PRN PRN Reason: delivery Terbutaline Sulfate (Brethine) 0.25 mg SUBCUT ASDIRECTED PRN PRN Reason: Tacysystole Discontinued Medications Citric Acid/Sodium Citrate (Bicitra Solution) 30 ml PO ONETIME ONE Stop: 08/17/19 23:25 Fentanyl (Sublimaze) Confirm Administered Dose 250 mcg .ROUTE .STK-MED ONE Stop: 08/17/19 23:58 Ampicillin Sodium 1 gm/ Sodium (Chloride) 50 mls @ 100 mls/hr IV Q4H [facility] Cefazolin Sodium/Dextrose 2 gm (/ Premix) 50 mls @ 100 mls/hr IV ONETIME ONE Stop: 08/17/19 23:53 Ketorolac Tromethamine (Toradol) Confirm Administered Dose 30 mg .ROUTE .STK-MED ONE Stop: 08/17/19 23:29 Morphine Sulfate (Duramorph Pf) Confirm Administered Dose 10 mg .ROUTE .STK-MED ONE Stop: 08/17/19 23:27 Ondansetron HCl (Zofran) Confirm Administered Dose 4 mg .ROUTE .STK-MED ONE Stop: 08/17/19 23:29 Oxytocin (Pitocin) Confirm Administered Dose 20 unit .ROUTE .STK-MED ONE Stop: 08/17/19 23:29 Phenylephrine HCl (Dominick-Synephrine) Confirm Administered Dose 10 mg .ROUTE .STK- MED ONE Stop: 08/17/19 23:29 Propofol (Diprivan 20 Ml) Confirm Administered Dose 200 mg .ROUTE .STK-MED ONE Stop: 08/17/19 23:52
--- NOTE | 2019-08-18 00:24 | PCM.OPNOTE ---
- General Post-Op/Procedure Note Date of Surgery/Procedure: 08/18/19 Operative Procedure(s): Primary C/section Pre Op Diagnosis: [id number] denilson breech presentation. Post-Op Diagnosis: Same Anesthesia Technique: General ET Tube, Spinal Primary Surgeon: Juan Jose Lala Armament Mechanic: Digna Lemus EBL in mLs: 800 Complications: None Condition: Good
--- NOTE | 2019-08-18 00:50 | US ---
INDICATION: Evaluate position for Caesarean section TECHNIQUE: Ultrasound OB pelvis limited COMPARISON: None FINDINGS: Sonographic imaging demonstrates a single living intrauterine gestation with heart rate of 150 beats per minute and breech presentation. Significantly low amniotic fluid index at 1.30 centimeters. IMPRESSION: Single intrauterine gestation with breech presentation and heart rate of 150 beats per minute. Oligohydramnios with amniotic fluid index 1.30 centimeters. Dictated by Vaibhav Dalton MD @ 08/18/2019 12:48:31 AM Dictated by: Vaibhav Dalton MD @ 08/18/2019 00:48:41 (Electronically Signed)
[2019-08-18] MEDS ORDERED: Acetaminophen 1,000 MG in Premix Bag 1 BAG IV PRN (00:57)
[2019-08-18] MEDS: fentaNYL 100 MCG/2 ML SDV IVPUSH PRN ×2 (01:06→01:22)
--- NOTE | 2019-08-18 01:31 | PCM.POSTAN ---
POST ANESTHESIA ASSESSMENT - MENTAL STATUS Mental Status: Alert - RESPIRATORY Respiratory Status: Respiratory Rate WNL - CARDIOVASCULAR CV Status: Pulse Rate WNL - GASTROINTESTINAL GI Status: No Symptoms - POST OP HYDRATION Hydration Status: Adequate & Stable
[2019-08-18] MEDS: Lactated Ringers 1,000 ML IV SCH ×3 (01:52→12:02)
[2019-08-18] MEDS: Ketorolac 30 MG/ML SDV IVPUSH SCH ×3 (06:38→18:38)
--- NOTE | 2019-08-18 08:30 | PCM48HPAN ---
Post Anesthesia Note - EVALUATION WITHIN 48HRS OF ANESTHETIC Vital Signs in Normal Range: Yes Patient Participated in Evaluation: Yes Respiratory Function Stable: Yes Airway Patent: Yes Cardiovascular Function Stable: Yes Hydration Status Stable: Yes Pain Control Satisfactory: Yes Nausea and Vomiting Control Satisfactory: Yes Mental Status Recovered: Yes Vital Signs: Last Vital Signs Temp 36.4 C 08/18/19 08:00 Pulse 78 08/18/19 08:00 Resp 13 08/18/19 08:00 BP 99/56 L 08/18/19 08:00 Pulse Ox 98 08/18/19 08:00
[2019-08-18] MEDS: Docusate Sodium 100 MG Cap PO SCH ×2 (09:23→20:45)
--- NOTE | 2019-08-18 09:47 | PCM.PNPP ---
- General Info Date of Service: 08/18/19 Admission Dx/Problem (Free Text): Patient Status Order with Admit Dx/Problem 08/17/19 21:32 Patient Status [ADT] Routine Admission Diagnosis/Problem Admission Diagnosis/Problem Functional Status: Reports: Pain Controlled, Tolerating Diet - Review of Systems General: Reports: No Symptoms HEENT: Reports: No Symptoms Pulmonary: Reports: No Symptoms Cardiovascular: Reports: No Symptoms Gastrointestinal: Reports: No Symptoms Genitourinary: Reports: No Symptoms Musculoskeletal: Reports: No Symptoms Skin: Reports: No Symptoms Neurological: Reports: No Symptoms Psychiatric: Reports: No Symptoms - General Info Date of Service: 08/18/19 - Patient Data Vital Signs - Most Recent: Last Vital Signs Temp 97.5 F 08/18/19 08:00 Pulse 78 08/18/19 08:00 Resp 13 08/18/19 08:00 BP 99/56 L 08/18/19 08:00 Pulse Ox 98 08/18/19 08:00 Weight - Most Recent: 209 lb I&O - Last 24 Hours: Intake & Output 08/17/19 08/18/19 08/18/19 22:59 06:59 14:59 Output Total 225 Balance -225 Lab Results - Last 24 Hours: Laboratory Results - last 24 hr 08/17/19 08/17/19 08/17/19 Range/Units 22:06 22:06 22:42 WBC 8.33 (4.0-11.0) K/uL RBC 4.44 (4.30-5.90) M/uL Hgb 13.0 (12.0-16.0) g/dL Hct 38.6 (36.0-46.0) % MCV 86.9 (80.0-98.0) fL MCH 29.3 (27.0-32.0) pg MCHC 33.7 (31.0-37.0) g/dL RDW Std Deviation 49.7 (28.0-62.0) fl RDW Coeff of Luciano 16 H (11.0-15.0) % Plt Count 240 (150-400) K/uL MPV 11.30 (7.40-12.00) fL Nucleated RBC % 0.0 /100WBC Nucleated RBCs # 0 K/uL SARS-CoV-2 RNA (RT-PCR) NEGATIVE (NEGATIVE) Blood Type A POSITIVE Antibody Screen NEGATIVE Med Orders - Current: Current Medications Bisacodyl (Dulcolax) 10 mg RECTAL ONETIME PRN PRN Reason: Constipation Diphenhydramine HCl (Benadryl) 25 mg IVPUSH Q6H PRN PRN Reason: Itching or Nausea Docusate Sodium (Colace) 100 mg PO BID [facility] Last Admin: 08/18/19 09:23 Dose: 100 mg Documented by: Emollient Ointment (Lansinoh Hpa) 0 gm TOP ASDIRECTED PRN PRN Reason: Sore Nipples Tranexamic Acid 1,000 mg/ (Sodium Chloride) 110 mls @ 660 mls/hr IV ONETIME PRN PRN Reason: Bleeding Lactated Ringer's (Ringers, Lactated) 1,000 mls @ 125 mls/hr IV ASDIRECTED [facility] Last Admin: 08/18/19 04:10 Dose: 125 mls/hr Documented by: Acetaminophen 1,000 mg/ Premix 100 mls @ 400 mls/hr IV Q6H PRN PRN Reason: Pain Last Admin: 08/18/19 01:07 Dose: 400 mls/hr Documented by: Ibuprofen (Motrin) 800 mg PO Q8H PRN PRN Reason: mild pain or fever Ketorolac Tromethamine (Toradol) 30 mg IVPUSH Q6H [facility] Stop: 08/19/19 00:31 Last Admin: 08/18/19 06:38 Dose: 30 mg Documented by: Methylergonovine Maleate (Methergine) 0.2 mg IM ONETIME PRN PRN Reason: Excessive Vaginal Bleeding Misoprostol (Cytotec) 1,000 mcg RECTAL ONETIME PRN PRN Reason: excessive bleeding Nalbuphine HCl (Nubain) 10 mg IVPUSH Q1H PRN PRN Reason: Pain (severe 7-10) Ondansetron HCl (Zofran) 4 mg IVPUSH Q4H PRN PRN Reason: Nausea/Vomiting Oxycodone/Acetaminophen (Percocet 325-5 Mg) 1 tab PO Q4H PRN PRN Reason: Pain (moderate 4-6) Oxycodone/Acetaminophen (Percocet 325-5 Mg) 2 tab PO Q4H PRN PRN Reason: Pain (moderate 4-6) Oxytocin (Pitocin) 10 unit IM ASDIRECTED PRN PRN Reason: Excessive Vaginal Bleeding Discontinued Medications Butorphanol Tartrate (Stadol) 1 mg IVPUSH Q1H PRN PRN Reason: Pain Carboprost Tromethamine (Hemabate Ds) 250 mcg IM ASDIRECTED PRN PRN Reason: Post Hemorrhage Citric Acid/Sodium Citrate (Bicitra Solution) 30 ml PO ONETIME ONE Stop: 08/17/19 23:25 Diphenhydramine HCl (Benadryl) 25 mg IVPUSH Q4H PRN PRN Reason: Itching Stop: 08/19/19 00:18 Fentanyl (Sublimaze) Confirm Administered Dose 250 mcg .ROUTE .STK-MED ONE Stop: 08/17/19 23:58 Fentanyl (Sublimaze) 50 mcg IVPUSH Q1H PRN PRN Reason: Pain (severe 7-10) Fentanyl (Sublimaze) 50 mcg IVPUSH Q5M PRN PRN Reason: Pain Last Admin: 08/18/19 01:22 Dose: 50 mcg Documented by: Lactated Ringer's (Ringers, Lactated) 1,000 mls @ 150 mls/hr IV ASDIRECTED SAILAJA Last Admin: 08/17/19 22:11 Dose: 150 mls/hr Documented by: Oxytocin/Sodium Chloride (Oxytocin 30 Unit/500 Ml-Ns) 30 unit in 500 mls @ 999 mls/hr IV TITRATE [facility] Tranexamic Acid 1,000 mg/ (Sodium Chloride) 110 mls @ 660 mls/hr IV ONETIME PRN PRN Reason: Bleeding Oxytocin/Sodium Chloride (Oxytocin 30 Unit/500 Ml-Ns) 30 unit in 500 mls @ 2 mls/hr IV TITRATE [facility]; Protocol Ampicillin Sodium 1 gm/ Sodium (Chloride) 50 mls @ 100 mls/hr IV Q4H [facility] Lactated Ringer's (Ringers, Lactated) 1,000 mls @ 500 mls/hr IV BOLUS SAILAJA Oxytocin/Sodium Chloride (Oxytocin 30 Unit/500 Ml-Ns) 30 unit in 500 mls @ 250 mls/hr IV TITRATE SAILAJA Cefazolin Sodium/Dextrose 2 gm (/ Premix) 50 mls @ 100 mls/hr IV ONETIME ONE Stop: 08/17/19 23:53 Ketorolac Tromethamine (Toradol) Confirm Administered Dose 30 mg .ROUTE .STK-MED ONE Stop: 08/17/19 23:29 Lidocaine HCl (Xylocaine 1%) 50 ml INJECT ONETIME PRN PRN Reason: Laceration repair Methylergonovine Maleate (Methergine) 0.2 mg IM ASDIRECTED PRN PRN Reason: Post Hemorrhage Misoprostol (Cytotec) 200 mcg PO ONETIME PRN PRN Reason: Post Hemorrhage Morphine Sulfate (Duramorph Pf) Confirm Administered Dose 10 mg .ROUTE .STK-MED ONE Stop: 08/17/19 23:27 Nalbuphine HCl (Nubain) 5 mg IVPUSH ASDIRECTED PRN PRN Reason: Itching Naloxone HCl (Narcan) 0.1 mg IVPUSH ONETIME PRN PRN Reason: Respiratory Depression Stop: 08/19/19 00:18 Ondansetron HCl (Zofran) 4 mg IVPUSH Q4H PRN PRN Reason: Nausea/Vomiting Ondansetron HCl (Zofran) Confirm Administered Dose 4 mg .ROUTE .STK-MED ONE Stop: 08/17/19 23:29 Ondansetron HCl (Zofran) 4 mg IVPUSH Q6H PRN PRN Reason: Nausea Oxycodone/Acetaminophen (Percocet 325-5 Mg) 2 tab PO Q6H PRN PRN Reason: Pain (moderate 4-6) Oxytocin (Pitocin) Confirm Administered Dose 20 unit .ROUTE .STK-MED ONE Stop: 08/17/19 23:29 Phenylephrine HCl (Dominick-Synephrine) Confirm Administered Dose 10 mg .ROUTE .STK- MED ONE Stop: 08/17/19 23:29 Propofol (Diprivan 20 Ml) Confirm Administered Dose 200 mg .ROUTE .STK-MED ONE Stop: 08/17/19 23:52 Sodium Chloride (Normal Saline) 10 ml IV ASDIRECTED PRN PRN Reason: IV Use Sodium Chloride (Saline Flush) 10 ml FLUSH ASDIRECTED PRN PRN Reason: Keep Vein Open Sodium Chloride (Saline Flush) 2.5 ml FLUSH ASDIRECTED PRN PRN Reason: Keep Vein Open Sodium Chloride (Normal Saline) 10 ml IV ASDIRECTED PRN PRN Reason: IV Use Sterile Water (Sterile Water For Irrigation) 1,000 ml IRR ASDIRECTED PRN PRN Reason: delivery Terbutaline Sulfate (Brethine) 0.25 mg SUBCUT ASDIRECTED PRN PRN Reason: Tacysystole - Interaction Infant Disposition, : in Room with Family Feeding: Attempted ; Nursed Fair/Poor, Bottle Fed , Encouraged to Breastfeed Support Person: - Recovery Exam Fundal Tone: Firm Fundal Level: 1 Fingerbreadths Below Umbilicus Fundal Placement: Midline Lochia Amount: Scant Lochia Color: Rubra/Red Perineum Description: Intact, Minimal Bruising/Swelling Bladder Status: Indwelling Catheter in Place Urinary Elimination: Indwelling Catheter - Exam General: Alert, Oriented, Cooperative, No Acute Distress Lungs: Clear to Auscultation, Normal Respiratory Effort Cardiovascular: Regular Rate, Regular Rhythm GI/Abdominal Exam: Soft, Non-Tender Extremities: Normal Inspection, Normal Range of Motion, Non-Tender, Normal Capillary Refill Skin: Warm, Dry, Intact Wound/Incisions: Dressing Dry and Intact Neurological: No New Focal Deficit, Normal Speech Psy/Mental Status: Alert, Normal Affect, Normal Mood - Problem List & Annotations (1) Supervision of normal IUP (intrauterine ) in multigravida SNOMED Code(s): 528017944, 374594577, 800425927 Code(s): Z34.80 - ENCOUNTER FOR SUPRVSN OF NORMAL , UNSP TRIMESTER Status: Acute Priority: High Current Visit: No Qualifiers: Trimester: third trimester Qualified Code(s): Z34.83 - Encounter for supervision of other normal , third trimester - Problem List Review Problem List Initiated/Reviewed/Updated: Yes - Plan Plan:: Admit A: at 38 5/7 weeks (RUSTY: 08/26/19); presenting to L&D via ambulance with grossly ruptured membranes; 3 cm/80%/-1, soft, midposition per nurse report; A+, GBS negative, Rubella immune; sonia q3-5 minutes; SVE by provider noted suspected breech position; bedside ultrasound confirmed breech presentation. P: Admit for section due to breech presentation with ruptured membranes; Dr. Lala and surgical team called in. Day 1 A: Patient is resting in bed with infant and partner in the room with her. Indwelling catheter in place, SCDs applied. Dressing dry and intact. Reports adequate pain relief. P: Routine cleaning of care; Dr. Lala updated.
[2019-08-19] MEDS: Ketorolac 30 MG/ML SDV IVPUSH SCH (00:41)
[2019-08-19] MEDS ORDERED: Ibuprofen 800 MG Tab PO PRN (06:30)
[2019-08-19] MEDS: Docusate Sodium 100 MG Cap PO SCH (08:10)
[2019-08-19] MEDS: Acetaminophen/oxyCODONE 325-5 MG Tab PO PRN ×2 (08:10→15:05)
--- NOTE | 2019-08-19 08:43 | PCM.DCSUM1 ---
Discharge Summary - Hospital Course Free Text/Narrative:: Discharge home with baby. Follow up in the clinic in 1 week for incision check. Follow up in the clinic again in 6 weeks for routine visit. Diagnosis: Stroke: No Modified Garfield Scale: No Symptoms at All Modified Garfield Scale Score: 0 - Discharge Data Discharge Date: 08/19/19 Discharge Disposition: Home, Self-Care 01 Condition: Good - Referral to Home Health Primary Care Physician: PCP None - Discharge Diagnosis/Problem(s) (1) Supervision of normal IUP (intrauterine ) in multigravida SNOMED Code(s): 619445356, [id number], [id number] ICD Code: Z34.80 - ENCOUNTER FOR SUPRVSN OF NORMAL , UNSP TRIMESTER Status: Acute Priority: High Current Visit: No Qualifiers: Trimester: third trimester Qualified Code(s): Z34.83 - Encounter for supervision of other normal , third trimester - Patient Summary/Data Operative Procedure(s) Performed: Primary C/section - Patient Instructions Diet: Regular Diet as Tolerated, Drink 8-10+ Glasses/Day Activity: As Tolerated, No Strenuous Activities, Rest and Relax Today Driving: Do Not Drive Showering/Bathing: May Shower Wound/Incision Care: Keep Operative Site/Wound Site Clean and Dry Notify Provider of: Fever, Increased Pain, Swelling and Redness, Drainage, Nausea and/or Vomiting - Discharge Plan *PRESCRIPTION DRUG MONITORING PROGRAM REVIEWED*: Not Applicable *COPY OF PRESCRIPTION DRUG MONITORING REPORT IN PATIENT NAVID: Not Applicable Prescriptions/Med Rec: Ibuprofen [Motrin] 800 mg PO Q8H PRN #90 tablet PRN Reason: mild pain or fever Acetaminophen/oxyCODONE [Percocet 325-5 MG] 1 - 2 tab PO Q6HR PRN #24 tablet PRN Reason: Pain (Moderate 4-6) Home Medications: Home Meds Ibuprofen 800 mg PO TID PRN 05/29/18 [History] Acetaminophen/oxyCODONE [Percocet 325-5 MG] 1 - 2 tab PO Q6HR PRN #24 tablet 08/19/19 [Rx] Ibuprofen [Motrin] 800 mg PO Q8H PRN #90 tablet 08/19/19 [Rx] Oxygen Therapy Mode: Room Air - Discharge Summary/Plan Comment DC Time >30 min.: Yes - General Info Date of Service: 08/19/19 Admission Dx/Problem (Free Text: Patient Status Order with Admit Dx/Problem 08/17/19 21:32 Patient Status [ADT] Routine Admission Diagnosis/Problem Admission Diagnosis/Problem Functional Status: Reports: Pain Controlled, Tolerating Diet, Ambulating, Urinating - Review of Systems General: Reports: No Symptoms HEENT: Reports: No Symptoms Pulmonary: Reports: No Symptoms Cardiovascular: Reports: No Symptoms Gastrointestinal: Reports: No Symptoms Genitourinary: Reports: No Symptoms Musculoskeletal: Reports: No Symptoms Skin: Reports: No Symptoms Neurological: Reports: No Symptoms Psychiatric: Reports: No Symptoms - Patient Data Vitals - Most Recent: Last Vital Signs Temp 97.4 F 08/19/19 05:13 Pulse 85 08/19/19 05:13 Resp 15 08/19/19 05:13 BP 113/74 08/19/19 05:13 Pulse Ox 95 08/19/19 05:13 Weight - Most Recent: 209 lb I&O - Last 24 hours: Intake & Output 08/18/19 08/19/19 08/19/19 22:59 06:59 14:59 Output Total 605 Balance -605 Lab Results - Last 24 hrs: Laboratory Results - last 24 hr 08/19/19 Range/Units 06:02 Hgb 10.3 L (12.0-16.0) g/dL Hct 31.7 L (36.0-46.0) % Med Orders - Current: Current Medications Bisacodyl (Dulcolax) 10 mg RECTAL ONETIME PRN PRN Reason: Constipation Diphenhydramine HCl (Benadryl) 25 mg IVPUSH Q6H PRN PRN Reason: Itching or Nausea Docusate Sodium (Colace) 100 mg PO BID [facility] Last Admin: 08/19/19 08:10 Dose: 100 mg Documented by: Emollient Ointment (Lansinoh Hpa) 0 gm TOP ASDIRECTED PRN PRN Reason: Sore Nipples Tranexamic Acid 1,000 mg/ (Sodium Chloride) 110 mls @ 660 mls/hr IV ONETIME PRN PRN Reason: Bleeding Lactated Ringer's (Ringers, Lactated) 1,000 mls @ 125 mls/hr IV ASDIRECTED [facility] Last Admin: 08/18/19 12:02 Dose: 125 mls/hr Documented by: Acetaminophen 1,000 mg/ Premix 100 mls @ 400 mls/hr IV Q6H PRN PRN Reason: Pain Last Admin: 08/18/19 01:07 Dose: 400 mls/hr Documented by: Ibuprofen (Motrin) 800 mg PO Q8H PRN PRN Reason: mild pain or fever Last Admin: 08/19/19 08:10 Dose: 800 mg Documented by: Methylergonovine Maleate (Methergine) 0.2 mg IM ONETIME PRN PRN Reason: Excessive Vaginal Bleeding Misoprostol (Cytotec) 1,000 mcg RECTAL ONETIME PRN PRN Reason: excessive bleeding Nalbuphine HCl (Nubain) 10 mg IVPUSH Q1H PRN PRN Reason: Pain (severe 7-10) Ondansetron HCl (Zofran) 4 mg IVPUSH Q4H PRN PRN Reason: Nausea/Vomiting Oxycodone/Acetaminophen (Percocet 325-5 Mg) 1 tab PO Q4H PRN PRN Reason: Pain (moderate 4-6) Last Admin: 08/19/19 08:10 Dose: 1 tab Documented by: Oxycodone/Acetaminophen (Percocet 325-5 Mg) 2 tab PO Q4H PRN PRN Reason: Pain (moderate 4-6) Oxytocin (Pitocin) 10 unit IM ASDIRECTED PRN PRN Reason: Excessive Vaginal Bleeding Discontinued Medications Butorphanol Tartrate (Stadol) 1 mg IVPUSH Q1H PRN PRN Reason: Pain Carboprost Tromethamine (Hemabate Ds) 250 mcg IM ASDIRECTED PRN PRN Reason: Post Hemorrhage Citric Acid/Sodium Citrate (Bicitra Solution) 30 ml PO ONETIME ONE Stop: 08/17/19 23:25 Diphenhydramine HCl (Benadryl) 25 mg IVPUSH Q4H PRN PRN Reason: Itching Stop: 08/19/19 00:18 Fentanyl (Sublimaze) Confirm Administered Dose 250 mcg .ROUTE .STK-MED ONE Stop: 08/17/19 23:58 Fentanyl (Sublimaze) 50 mcg IVPUSH Q1H PRN PRN Reason: Pain (severe 7-10) Fentanyl (Sublimaze) 50 mcg IVPUSH Q5M PRN PRN Reason: Pain Last Admin: 08/18/19 01:22 Dose: 50 mcg Documented by: Lactated Ringer's (Ringers, Lactated) 1,000 mls @ 150 mls/hr IV ASDIRECTED [facility] Last Admin: 08/17/19 22:11 Dose: 150 mls/hr Documented by: Oxytocin/Sodium Chloride (Oxytocin 30 Unit/500 Ml-Ns) 30 unit in 500 mls @ 999 mls/hr IV TITRATE [facility] Tranexamic Acid 1,000 mg/ (Sodium Chloride) 110 mls @ 660 mls/hr IV ONETIME PRN PRN Reason: Bleeding Oxytocin/Sodium Chloride (Oxytocin 30 Unit/500 Ml-Ns) 30 unit in 500 mls @ 2 mls/hr IV TITRATE [facility]; Protocol Ampicillin Sodium 1 gm/ Sodium (Chloride) 50 mls @ 100 mls/hr IV Q4H [facility] Lactated Ringer's (Ringers, Lactated) 1,000 mls @ 500 mls/hr IV [facility]OL[facility]ILAJA Oxytocin/Sodium Chloride (Oxytocin 30 Unit/500 Ml-Ns) 30 unit in 500 mls @ 250 mls/hr IV TITRATE [facility] Cefazolin Sodium/Dextrose 2 gm (/ Premix) 50 mls @ 100 mls/hr IV ONETIME ONE Stop: 08/17/19 23:53 Ketorolac Tromethamine (Toradol) Confirm Administered Dose 30 mg .ROUTE .STK-MED ONE Stop: 08/17/19 23:29 Ketorolac Tromethamine (Toradol) 30 mg IVPUSH Q6H [facility] Stop: 08/19/19 00:31 Last Admin: 08/19/19 00:41 Dose: 30 mg Documented by: Lidocaine HCl (Xylocaine 1%) 50 ml INJECT ONETIME PRN PRN Reason: Laceration repair Methylergonovine Maleate (Methergine) 0.2 mg IM ASDIRECTED PRN PRN Reason: Post Hemorrhage Misoprostol (Cytotec) 200 mcg PO ONETIME PRN PRN Reason: Post Hemorrhage Morphine Sulfate (Duramorph Pf) Confirm Administered Dose 10 mg .ROUTE .STK-MED ONE Stop: 08/17/19 23:27 Nalbuphine HCl (Nubain) 5 mg IVPUSH ASDIRECTED PRN PRN Reason: Itching Naloxone HCl (Narcan) 0.1 mg IVPUSH ONETIME PRN PRN Reason: Respiratory Depression Stop: 08/19/19 00:18 Ondansetron HCl (Zofran) 4 mg IVPUSH Q4H PRN PRN Reason: Nausea/Vomiting Ondansetron HCl (Zofran) Confirm Administered Dose 4 mg .ROUTE .STK-MED ONE Stop: 08/17/19 23:29 Ondansetron HCl (Zofran) 4 mg IVPUSH Q6H PRN PRN Reason: Nausea Oxycodone/Acetaminophen (Percocet 325-5 Mg) 2 tab PO Q6H PRN PRN Reason: Pain (moderate 4-6) Oxytocin (Pitocin) Confirm Administered Dose 20 unit .ROUTE .STK-MED ONE Stop: 08/17/19 23:29 Phenylephrine HCl (Dominick-Synephrine) Confirm Administered Dose 10 mg .ROUTE .STK- MED ONE Stop: 08/17/19 23:29 Propofol (Diprivan 20 Ml) Confirm Administered Dose 200 mg .ROUTE .STK-MED ONE Stop: 08/17/19 23:52 Sodium Chloride (Normal Saline) 10 ml IV ASDIRECTED PRN PRN Reason: IV Use Sodium Chloride (Saline Flush) 10 ml FLUSH ASDIRECTED PRN PRN Reason: Keep Vein Open Sodium Chloride (Saline Flush) 2.5 ml FLUSH ASDIRECTED PRN PRN Reason: Keep Vein Open Sodium Chloride (Normal Saline) 10 ml IV ASDIRECTED PRN PRN Reason: IV Use Sterile Water (Sterile Water For Irrigation) 1,000 ml IRR ASDIRECTED PRN PRN Reason: delivery Terbutaline Sulfate (Brethine) 0.25 mg SUBCUT ASDIRECTED PRN PRN Reason: Tacysystole - Exam General: Reports: Alert, Oriented, Cooperative, No Acute Distress Lungs: Reports: Clear to Auscultation, Normal Respiratory Effort Cardiovascular: Reports: Regular Rate, Regular Rhythm GI/Abdominal Exam: Soft, Non-Tender (Female) Exam: Deferred Rectal (Female) Exam: Deferred Back Exam: Reports: Normal Inspection, Full Range of Motion Extremities: Normal Inspection, Normal Range of Motion, Non-Tender, Normal Capillary Refill Skin: Reports: Warm, Dry, Intact Wound/Incisions: Reports: Dressing Dry and Intact Neurological: Reports: No New Focal Deficit, Normal Speech, Normal Tone, Strength Equal Bilateral, Sensation Intact Psy/Mental Status: Reports: Alert, Normal Affect, Normal Mood
[2019-08-19 18:26] VITALS: BP 118/74; PULSE 81
--- NOTE | 2019-08-20 10:05 | OR ---
SURGEON: Juan Jose Lala MD DATE OF PROCEDURE: 08/18/2019 PREOPERATIVE DIAGNOSES: Intrauterine 38+ weeks, spontaneous rupture of membrane, denilson breech presentation confirmed by ultrasound. POSTOPERATIVE DIAGNOSES: Intrauterine 38+ weeks, spontaneous rupture of membrane, denilson breech presentation confirmed by ultrasound. OPERATION PERFORMED: Primary low transverse section. PRIMARY SURGEON: Juan Jose Lala MD COLD WORKING INSPECTOR: Digna Lemus, certified nurse installer interior assemblies. ANESTHESIA: Spinal failed and then general anesthesia by Mr. Rigo Guerrero and Dr. Xiong. ESTIMATED BLOOD LOSS: 800 mL. COMPLICATIONS: None. FINDINGS: Female fetus. score and weight are not available at the time of the dictation. INDICATION FOR SURGERY: This patient is 33. She is para 3-0-0-3. She is 38+ weeks. She presented with spontaneous rupture of membrane, active labor, and she was found to be in a denilson breech presentation. This presentation is confirmed by an ultrasound and decision made to do primary low transverse section. DESCRIPTION OF PROCEDURE: The patient was brought to the OR, properly identified, and after spinal anesthesia, the patient prepped and draped in sterile fashion as usual. However, when we tested the spinal anesthesia, it was inadequate, and the anesthesiologist and the nurse chief underwriter proceeded to put the patient to sleep. Once the adequate anesthesia was established, then low transverse Pfannenstiel skin incision done. Pranay fascia and rectus fascia were opened in direction of the incision. The 2 recti muscles . Peritoneal cavity was entered and bladder flap was raised in the usual manner pushing the bladder away from the lower uterine segment. Low transverse uterine incision extended manually with the hand. Fetus was in denilson breech presentation, delivered without any problem, handed to the resuscitating team, who is headed by Dr. Cotter, the supervisor customer complaint service. The scores and the weight are not available at the time of the dictation. The placenta delivered spontaneous, complete, and intact, and repair of the lower uterine segment done with 2-0 Vicryl continuous interlocking in 2 layers. Reperitonealization done with 3-0 Vicryl continuous. The peritoneal cavity evacuated completely from all blood and blood clot and closed with 3-0 Vicryl continuous, and the rectus fascia was closed with #1 PDS continuous. Pranay fascia with 3-0 Vicryl continuous. Skin closed with 3-0 Vicryl on a Chris needle in a subcuticular fashion and Dermabond. Instrument and sponge count was correct. The patient tolerated the procedure well, went to recovery room in stable general condition. MICAH JAQUEZ /[id number]
== END 2019-08-19 17:04 | disposition home or self-care (01) | DRG 540 ==
LOC: MW.OBCHECK 21:18 → MW.OB 21:19 → UNDOADMOB 21:45 → MW.OBCHECK 21:45 → MW.OB 21:45 → OBSVTOIN 23:24 → MW.OB 08-18 02:47
PROVIDERS: ADMIT Obstetrics & Gynecology; ATTEND Obstetrics & Gynecology
PROC: 10D00Z1 Extraction of Products of Conception, Low, Open Approach (ICD-10-PCS; principal; 2019-08-18)
DX: O32.1XX0 Maternal care for breech presentation, not applicable or unspecified (principal); Z3A.38 38 weeks gestation of pregnancy; Z37.0 Single live birth; Z20.828 Contact with and (suspected) exposure to other viral communicable diseases
CPT/HCPCS: 36415; 51702; 59025; 76815; 76815-26; 85014; 85018; 85027; 86592; 86593; 86850; 86900; 86901; A9270-GY; J0131; J1885; J2270; J2370; J2405; J2590; J2704; J3010; J7120; U0002

== ENCOUNTER 2019-08-23 11:34 | Emergency (ER) | payer BC, OTHER ==
--- NOTE | 2019-08-23 11:41 | EDM.PDOC ---
ED HPI GENERAL MEDICAL PROBLEM - General Stated Complaint: [facility] Time Seen by Provider: 08/23/19 11:41 Source of Information: Reports: Patient History Limitations: Reports: No Limitations - History of Present Illness INITIAL COMMENTS - FREE TEXT/NARRATIVE: HISTORY AND PHYSICAL: History of present illness: Patient is a 33-year-old female who presents to the emergency room with complai nts of lower extremity edema, headache, fever and concerns of hypertension. She is a , 4 para 4: delivery on 08/17/[address] Lala. She has not had any related concerns. She did call to be seen at the [facility] clinic today as she had a temperature of 102 last evening. 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 She was recommended to come to the emergency room for evaluation as their concern was she needs to be screened for COVID and PE rule out. Upon arrival to the emergency department her main concern is her blood pressure, generalized headache and lower ankle/foot swelling. She reports she had preeclampsia in her previous that did require hospitalization after delivery. This last she has not had any problems with her blood pressure and has not taken any medications for hypertension. Currently rates her pain at a 0-1 out of 10. Took ibuprofen last evening and Tylenol this morning at 8 AM. Currently afebrile. She describes her shortness of breath as mild and only when she is lying flat on her back. Denies any excessive vaginal bleeding or discharge. Patient denies any fever, chills, headache, change in vision, syncope or near syncope. Denies any chest pain, back pain, shortness of breath or cough. Denies any abdominal pain, n ausea, vomiting, diarrhea, constipation or dysuria. Has not noted any blood in urine or stool. Patient has been eating and drinking appropriately. Review of systems: As per history of present illness and below otherwise all systems reviewed and negative. Past medical history: As per history of present illness and as reviewed below otherwise noncontributory. Surgical history: As per history of present illness and as reviewed below otherwise noncontributory. Social history: See social history for further information Family history: As per history of present illness and as reviewed below otherwise noncontributory. Physical exam: General: Well-developed and well-nourished 33-year-old black female. Alert and oriented. Nontoxic-appearing and in no acute distress. Vital signs are stable and have been reviewed by me. HEENT: Atraumatic, normocephalic, pupils equal and reactive bilaterally, negative for conjunctival pallor or scleral icterus, mucous membranes moist, TMs normal bilaterally, throat clear, neck supple, nontender, trachea midline. No drooling or trismus noted. No meningeal signs. No hot potato voice noted. Lungs: Clear to auscultation, breath sounds equal bilaterally, chest nontender. Heart: S1S2, regular rate and rhythm without overt murmur Abdomen: Soft, nondistended, nontender. Negative for masses or hepatosplenomegaly. Negative for costovertebral tenderness. Pelvis: Pfannenstiel incision to the low abdomen stable nontender. Skin: Intact, warm, dry. No lesions or rashes noted. Extremities: Atraumatic, moves all extremities per self without difficulty or deficits, negative for cords or calf pain. Neurovascular unremarkable. Neuro: Awake, alert, oriented. Cranial nerves II through XII unremarkable. Cerebellum unremarkable. Motor and sensory unremarkable throughout. Exam nonfocal. Notes: Initial BP is slightly elevated; will continue to monitor. Patient is currently afebrile and is not tachycardic. Lung sounds are clear and my physical exam is within normal limits. We will do basic lab work at this time. Lab work is unremarkable, with the exception of UTI. Blood pressure has been within normal range. I did call and talk with Kaylee Clay, provider that sent her to the emergency department, we reviewed her diagnostics. Patient will be discharged to home with supportive care measures. The women's health clinic has already called the patient to set up a follow-up appointment for Tuesday. We discussed signs and symptoms that would prompt her to return to the emergency department. Supportive care measures were reviewed and discussed. Voices understanding and is agreeable to plan of care. Denies any further questions or concerns at this time. Diagnostics: CBC, CMP, INR, Lactate, BC x 2, COVID, Therapeutics: IV fluids Prescription: None Impression: Encounter for medical screening exam UTI Plan: 1. Continue with your care as you have been directed by Kaylee Clay. There nursing staff should have called you with a follow-up appointment date and time for next week. If at any time your symptoms should return, worsen or new symptoms develop please return to the emergency room -we are more than happy to reevaluate you. 2. Make sure you are drinking plenty of fluids. You can alternate Tylenol and ibuprofen as needed for mild to moderate pain. You should have your oxycodone still available if needed for moderate to severe pain. This medication may cause drowsiness so do not take it while driving or needing to be functioning outside of the house. Definitive disposition and diagnosis as appropriate pending reevaluation and review of above. - Related Data Allergies Allergy/AdvReac Type Severity Reaction Status Date / Time No Known Allergies Allergy Verified 08/23/19 11:45 Home Meds: Home Meds Ibuprofen [Motrin] 800 mg PO Q8H PRN #90 tablet 08/19/19 [Rx] Past Medical History - Past Health History Medical/Surgical History: Denies Medical/Surgical History HEENT History: Reports: Other (See Below) Other HEENT History: wears glasses Cardiovascular History: Reports: Other (See Below) Other Cardiovascular History: HTN after child , "good now" Respiratory History: Reports: None Gastrointestinal History: Reports: None Genitourinary History: Reports: None CLAIMS CONFIGURATION ANALYST History: Reports: Other CLAIMS CONFIGURATION ANALYST History: currently breast feeding, in Jan, 2018, full term , breech in labor Musculoskeletal History: Reports: None Neurological History: Reports: None Psychiatric History: Reports: None Endocrine/Metabolic History: Reports: None Hematologic History: Reports: None Immunologic History: Reports: None Oncologic (Cancer) History: Reports: None Dermatologic History: Reports: None - Infectious Disease History Infectious Disease History: Reports: None - Past Surgical History Head Surgeries/Procedures: Reports: None HEENT Surgical History: Reports: None Cardiovascular Surgical History: Reports: None Respiratory Surgical History: Reports: None GI Surgical History: Reports: None Female Surgical History: Reports: None Endocrine Surgical History: Reports: None Neurological Surgical History: Reports: None Musculoskeletal Surgical History: Reports: None Dermatological Surgical History: Reports: None Social & Family History - Family History Family Medical History: Noncontributory - Caffeine Use Caffeine Use: Reports: None ED ROS GENERAL - Review of Systems Review Of Systems: Comprehensive ROS is negative, except as noted in HPI. ED EXAM, GENERAL - Physical Exam Exam: See Below (See dictation) Course - Vital Signs Last Recorded V/S: Last Vital Signs Temp 97.5 F 08/23/19 11:45 Pulse 65 08/23/19 13:41 Resp 14 08/23/19 13:41 BP 130/82 08/23/19 13:41 Pulse Ox 95 08/23/19 13:41 - Orders/Labs/Meds Orders: Active Orders 24 hr Category Date Time Status CULTURE BLOOD [BC] Stat Lab 08/23/19 12:05 Received CULTURE BLOOD [BC] Stat Lab 08/23/19 12:10 Received CULTURE URINE [RM] Stat Lab 08/23/19 13:00 Received Nitrofurantoin Newberry/Macrocryst [Macrobid] Med 08/23/19 13:44 Once 100 mg PO ONETIME ONE Sodium Chloride 0.9% [Saline Flush] Med 08/23/19 11:42 Active 10 ml FLUSH ASDIRECTED PRN Sodium Chloride 0.9% [Saline Flush] Med 08/23/19 11:42 Active 2.5 ml FLUSH ASDIRECTED PRN Blood Culture x2 Reflex Set [OM.PC] Stat Oth 08/23/19 11:42 Ordered Saline Lock Insert [OM.PC] Stat Oth 08/23/19 11:42 Ordered Medication Orders Sodium Chloride (Saline Flush) 10 ml FLUSH ASDIRECTED PRN PRN Reason: Keep Vein Open Last Admin: 08/23/19 12:00 Dose: 10 ml Documented by: TALA Sodium Chloride (Saline Flush) 2.5 ml FLUSH ASDIRECTED PRN PRN Reason: Keep Vein Open Last Admin: 08/23/19 11:59 Dose: 2.5 ml Documented by: TALA Labs: Laboratory Tests 08/23/19 08/23/19 08/23/19 Range/Units 11:45 11:45 11:45 WBC 8.04 (4.0-11.0) K/uL RBC 3.83 L (4.30-5.90) M/uL Hgb 10.8 L (12.0-16.0) g/dL Hct 33.5 L (36.0-46.0) % MCV 87.5 (80.0-98.0) fL MCH 28.2 (27.0-32.0) pg MCHC 32.2 (31.0-37.0) g/dL RDW Std Deviation 48.5 (28.0-62.0) fl RDW Coeff of Luciano 15 (11.0-15.0) % Plt Count 272 (150-400) K/uL MPV 10.60 (7.40-12.00) fL Neut % (Auto) 53.9 (48.0-80.0) % Lymph % (Auto) 33.8 (16.0-40.0) % Newberry % (Auto) 9.6 (0.0-15.0) % Eos % (Auto) 2.5 (0.0-7.0) % Baso % (Auto) 0.2 (0.0-1.5) % Neut # (Auto) 4.3 (1.4-5.7) K/uL Lymph # (Auto) 2.7 H (0.6-2.4) K/uL Newberry # (Auto) 0.8 (0.0-0.8) K/uL Eos # (Auto) 0.2 (0.0-0.7) K/uL Baso # (Auto) 0.0 (0.0-0.1) K/uL Nucleated RBC % 0.5 /100WBC Nucleated RBCs # 0 K/uL INR Lactate 1.0 (0.20-2.00) mmol/L Sodium 142 (136-145) mmol/L Potassium 3.9 (3.5-5.1) mmol/L Chloride 106 (98-107) mmol/L Carbon Dioxide 22.6 (21.0-32.0) mmol/L BUN 15 (7.0-18.0) mg/dL Creatinine 0.9 (0.6-1.0) mg/dL Est Cr Clr Drug Dosing 81.50 mL/min Estimated GFR (MDRD) > 60.0 ml/min Glucose 74 (74-106) mg/dL Calcium 8.5 (8.5-10.1) mg/dL Total Bilirubin 0.4 (0.2-1.0) mg/dL AST 47 H (15-37) IU/L ALT 72 H (14-63) IU/L Alkaline Phosphatase 162 H (46-116) U/L Total Protein 6.3 L (6.4-8.2) g/dL Albumin 2.4 L (3.4-5.0) g/dL Globulin 3.9 (2.6-4.0) g/dL Albumin/Globulin Ratio 0.6 L (0.9-1.6) Urine Color Urine Appearance Urine pH (5.0-8.0) Ur Specific Greenleaf (1.001-1.035) Urine Protein (NEGATIVE) mg/dL Urine Glucose (UA) (NEGATIVE) mg/dL Urine Ketones (NEGATIVE) mg/dL Urine Occult Blood (NEGATIVE) Urine Nitrite (NEGATIVE) Urine Bilirubin (NEGATIVE) Urine Urobilinogen (<2.0) EU/dL Ur Leukocyte Esterase (NEGATIVE) Urine RBC (0-2/HPF) Urine WBC (0-5/HPF) Ur Epithelial Cells (NONE-FEW) Urine Bacteria (NEGATIVE) SARS-CoV-2 RNA (RT-PCR) (NEGATIVE) 08/23/19 08/23/19 08/23/19 Range/Units 11:45 11:45 13:00 WBC (4.0-11.0) K/uL RBC (4.30-5.90) M/uL Hgb (12.0-16.0) g/dL Hct (36.0-46.0) % MCV (80.0-98.0) fL MCH (27.0-32.0) pg MCHC (31.0-37.0) g/dL RDW Std Deviation (28.0-62.0) fl RDW Coeff of Luciano (11.0-15.0) % Plt Count (150-400) K/uL MPV (7.40-12.00) fL Neut % (Auto) (48.0-80.0) % Lymph % (Auto) (16.0-40.0) % Newberry % (Auto) (0.0-15.0) % Eos % (Auto) (0.0-7.0) % Baso % (Auto) (0.0-1.5) % Neut # (Auto) (1.4-5.7) K/uL Lymph # (Auto) (0.6-2.4) K/uL Newberry # (Auto) (0.0-0.8) K/uL Eos # (Auto) (0.0-0.7) K/uL Baso # (Auto) (0.0-0.1) K/uL Nucleated RBC % /100WBC Nucleated RBCs # K/uL INR 0.91 Lactate (0.20-2.00) mmol/L Sodium (136-145) mmol/L Potassium (3.5-5.1) mmol/L Chloride (98-107) mmol/L Carbon Dioxide (21.0-32.0) mmol/L BUN (7.0-18.0) mg/dL Creatinine (0.6-1.0) mg/dL Est Cr Clr Drug Dosing mL/min Estimated GFR (MDRD) ml/min Glucose (74-106) mg/dL Calcium (8.5-10.1) mg/dL Total Bilirubin (0.2-1.0) mg/dL AST (15-37) IU/L ALT (14-63) IU/L Alkaline Phosphatase (46-116) U/L Total Protein (6.4-8.2) g/dL Albumin (3.4-5.0) g/dL Globulin (2.6-4.0) g/dL Albumin/Globulin Ratio (0.9-1.6) Urine Color YELLOW Urine Appearance SLT CLOUDY Urine pH 6.5 (5.0-8.0) Ur Specific Greenleaf 1.015 (1.001-1.035) Urine Protein NEGATIVE (NEGATIVE) mg/dL Urine Glucose (UA) NEGATIVE (NEGATIVE) mg/dL Urine Ketones NEGATIVE (NEGATIVE) mg/dL Urine Occult Blood LARGE H (NEGATIVE) Urine Nitrite NEGATIVE (NEGATIVE) Urine Bilirubin NEGATIVE (NEGATIVE) Urine Urobilinogen 0.2 (<2.0) EU/dL Ur Leukocyte Esterase SMALL H (NEGATIVE) Urine RBC 0-3 (0-2/HPF) Urine WBC 3-5 (0-5/HPF) Ur Epithelial Cells MODERATE (NONE-FEW) Urine Bacteria 1+ H (NEGATIVE) SARS-CoV-2 RNA (RT-PCR) NEGATIVE (NEGATIVE) Meds: Medications Generic Name Dose Route Start Last Admin Trade Name Freq PRN Reason Stop Dose Admin Sodium Chloride 10 ml 08/23/19 11:42 08/23/19 12:00 Saline Flush FLUSH 10 ml ASDIRECTED PRN Administration Keep Vein Open Sodium Chloride 2.5 ml 08/23/19 11:42 08/23/19 11:59 Saline Flush FLUSH 2.5 ml ASDIRECTED PRN Administration Keep Vein Open Discontinued Medications Generic Name Dose Route Start Last Admin Trade Name Freq PRN Reason Stop Dose Admin Sodium Chloride 1,000 mls @ 999 mls/hr 08/23/19 11:42 08/23/19 11:58 Normal Saline IV 08/23/19 12:42 999 mls/hr STAT ONE Administration Departure - Departure Time of Disposition: 13:45 Disposition: Home, Self-Care 01 Clinical Impression: Encounter for medical screening examination UTI (urinary tract infection) following delivery Qualifiers: urinary tract infection type: bladder infection Qualified Code(s): O86.22 - Infection of bladder following delivery - Discharge Information Instructions: Care After Delivery, Urinary Tract Infection, Adult Referrals: Kaylee Clay CNM [Primary Care Provider] - Additional Instructions: The following information is given to patients seen in the emergency department who are being discharged to home. This information is to outline your options for follow-up care. We provide all patients seen in our emergency department with a follow-up referral. The need for follow-up, as well as the timing and circumstances, are variable depending upon the specifics of your emergency department visit. If you don't have a primary care physician on staff, we will provide you with a referral. We always advise you to contact your personal physician following an emergency department visit to inform them of the circumstance of the visit and for follow-up with them and/or the need for any referrals to a consulting specialist. The emergency department will also refer you to a specialist when appropriate. This referral assures that you have the opportunity for follow-up care with a specialist. All of these measure are taken in an effort to provide you with optimal care, which includes your follow-up. Under all circumstances we always encourage you to contact your private physician who remains a resource for coordinating your care. When calling for follow-up care, please make the office aware that this follow-up is from your recent emergency room visit. If for any reason you are refused follow-up, please contact the [facility] Department at and asked to speak to the emergency department charge nurse. [facility] [address] [place] [id number] [facility] [address] [place] [id number] 1. Continue with your care as you have been directed by Kaylee Clay. There nursing staff should have called you with a follow-up appointment date and time for next week. If at any time your symptoms should return, worsen or new symptoms develop please return to the emergency room -we are more than happy to reevaluate you. 2. Make sure you are drinking plenty of fluids. You can alternate Tylenol and ibuprofen as needed for mild to moderate pain. You should have your oxycodone still available if needed for moderate to severe pain. This medication may cause drowsiness so do not take it while driving or needing to be functioning outside of the house. Sepsis Event Note (ED) - Focused Exam Vital Signs: Vital Signs Temp Pulse Resp BP Pulse Ox 08/23/19 13:41 65 14 130/82 95 08/23/19 12:46 69 15 131/83 96 08/23/19 11:45 97.5 F 75 18 153/82 H 98 - My Orders Last 24 Hours: My Active Orders 08/23/19 11:42 Sodium Chloride 0.9% [Saline Flush] 10 ml FLUSH ASDIRECTED PRN Sodium Chloride 0.9% [Saline Flush] 2.5 ml FLUSH ASDIRECTED PRN Blood Culture x2 Reflex Set [OM.PC] Stat Saline Lock Insert [OM.PC] Stat 08/23/19 12:05 CULTURE BLOOD [BC] Stat 08/23/19 12:10 CULTURE BLOOD [BC] Stat 08/23/19 13:00 CULTURE URINE [RM] Stat 08/23/19 13:44 Nitrofurantoin Newberry/Macrocryst [Macrobid] 100 mg PO ONETIME ONE - Assessment/Plan Last 24 Hours: My Active Orders 08/23/19 11:42 Sodium Chloride 0.9% [Saline Flush] 10 ml FLUSH ASDIRECTED PRN Sodium Chloride 0.9% [Saline Flush] 2.5 ml FLUSH ASDIRECTED PRN Blood Culture x2 Reflex Set [OM.PC] Stat Saline Lock Insert [OM.PC] Stat 08/23/19 12:05 CULTURE BLOOD [BC] Stat 08/23/19 12:10 CULTURE BLOOD [BC] Stat 08/23/19 13:00 CULTURE URINE [RM] Stat 08/23/19 13:44 Nitrofurantoin Newberry/Macrocryst [Macrobid] 100 mg PO ONETIME ONE
[2019-08-23] MEDS ORDERED: Sodium Chloride 0.9% 10 ML Syringe FLUSH PRN (11:42)
[2019-08-23] MEDS ORDERED: Sodium Chloride 0.9% 2.5 ML Syringe FLUSH PRN (11:42)
[2019-08-23] MEDS ORDERED: Sodium Chloride 0.9% 1,000 ML IV ONE (11:42)
[2019-08-23 12:30] LABS: BLOOD UREA NITROGEN,BUN 15 mg/dL (7.0-18.0); CARBON DIOXIDE,CO2 22.6 mmol/L (21.0-32.0); CHLORIDE,CL 106 mmol/L (98-107); GLUCOSE RANDOM 74 mg/dL (74-106); POTASSIUM,K 3.9 mmol/L (3.5-5.1); SODIUM,NA 142 mmol/L (136-145)
--- NOTE | 2019-08-23 13:02 | CR ---
Chest: Portable view of the chest was obtained. Comparison: No prior chest imaging. Heart size and mediastinum are within normal limits for portable technique. Lungs are clear with no acute parenchymal change. Slight scoliosis is noted within the spine. Impression: 1. Nothing acute is seen on portable chest x-ray. Diagnostic code #2 This report was dictated in MDT
[2019-08-23 13:41] VITALS: BP 130/82; PULSE 65
[2019-08-23] MEDS ORDERED: Nitrofurantoin Monohydrate/Macrocrystalline 100 MG Cap PO ONE (13:44)
== END 2019-08-23 13:51 | disposition home or self-care (01) ==
LOC: MW.ED 11:34
DX: O86.20 Urinary tract infection following delivery, unspecified (principal); O16.5 Unspecified maternal hypertension, complicating the puerperium; Z20.828 Contact with and (suspected) exposure to other viral communicable diseases
CPT/HCPCS: 36415; 71045; 80053; 81001; 83605; 85025; 85610; 87040; 87086; 87635; 99284; J7030; 99283; U0002